=== PATIENT | female | born 1950 | race Caucasian/White ===

== ENCOUNTER 2022-03-06 09:00 | Outpatient (CLI) | payer MEDICARE, BC, SELFPAY | END 2022-03-06 09:01 | disposition home or self-care (01) | PROVIDERS: PCP Family Medicine; Visit Provider Family Medicine | DX: M54.16 Radiculopathy, lumbar region (principal); M51.36 Other intervertebral disc degeneration, lumbar region | CPT/HCPCS: 62323; J0702; Q9966 ==

== ENCOUNTER 2023-03-12 10:54 | Outpatient (RCR) | payer MEDICARE, BC, SELFPAY ==
--- NOTE | 2023-03-12 12:08 | PT.OPEX ---
[facility] initial eval requires signature [facility] Start: 03/02/23 08:06 Freq: Status: Active Protocol: Document 03/12/23 07:41 DEANNE (Rec: 03/12/23 12:06 DEANNE [id number]) E-signed By Zeus Oconnor DPT Physical Therapy Outpatient Evaluation Insurance Information Recert Due Date 06/05/23 Insurance Name Medicare B Medical Diagnosis L knee OA L TKA Treating Diagnosis L knee pain muscle weakness Subjective Subjective Skylar comes into clinic prior to her scheduled L TKA on 03/25. Has had her hip replaced in the past without any issues and was very happy with the results. The knee has been giving her pain for the past 3 years ago or so and has finally decided to get it replaced. About 3-4 weeks ago she had COVID-pneumonia and was hospitalized for several days-does state feeling much better since than. Her friend will be staying with her for 2 weeks following surgery to help take care of things. Her biggest goals are to become more active along with improved walking, donning/ doffing socks, stairs. Pain Comments 10 with squatting, walking putting on socks kneeling Date of Surgery (If applicable) 03/25/23 Current Work Status Retired Precautions Treatment Precautions/Contraindications hx of pneumonia-covid, osteoporosis, fibromyalgia, R JIL Objective Other/Pertinent Objective GAIT/FUNCTIONAL MOBILITY ambulates with trendelenburg pattern, increased L knee valgus with stance , decreased pace KNEE ROM L [id number] passively lacking 13 degrees LLE MMT: Hip flexion: L4 /5 Hip abduction: L3- /5 Knee flexion: L4 /5 Knee extension: L4- /5 Assessment Assessment/Impression Pt is a 72 yr old female who presents with concerns of L knee pain due to OA. Patient also has notable objective findings including limited ROM , impaired balance, decreased strength also likely contributing to the problem. Patient is a good candidate for skilled therapy to target deficits described above. Skilled PT intervention is necessary for use of therapeutic exercise manual therapy, neuromuscular re- education, gait training, and therapeutic activity. Functional impairments include difficulty with: walking standing stairs squatting. Pt will be following up post operatively elsewhere for her rehab. Goals were to educate pt on TKA POC and rehab protocol. Pt was agreeable and stated understanding with all questions being answered Plan of Care Rehabilitation Potential Excellent Physical Therapy Goals GOAL in 1 visit Pt will be independent with post op HEP within 1 visit to allow for independence and continued improvement past formal therapy Coordination/Communication With Referral Source Treatment Plan/Direct Interventions Therapeutic Exercises Frequency/Duration 1 visit Patient Will Be Discharged From Therapy Independent w/HEP Evaluation Billing Untimed Code Treatment Minutes 20 Complexity Low Certification Information Physician Comment/Change : Physician NPI Number #
== END 2023-07-10 23:59 | disposition home or self-care (01) ==
PROVIDERS: PCP Family Medicine; Visit Provider Orthopaedic Surgery
DX: M17.12 Unilateral primary osteoarthritis, left knee (principal); Z96.652 Presence of left artificial knee joint; M25.562 Pain in left knee; M62.81 Muscle weakness (generalized); Z51.89 Encounter for other specified aftercare
CPT/HCPCS: 97110; 97161

== ENCOUNTER 2023-05-13 10:07 | Day surgery (SDC) | payer MEDICARE, BC, SELFPAY ==
[2023-05-13] VITALS (36 sets, daily range): BP systolic 108–168; BP diastolic 63–116; PULSE 72–95; RESP 13–20; TEMP 36.5–37.1; O2SAT 88–97; BMI 44.8
[2023-05-13] MEDS: CELECOXIB 200 MG CAPSULE PO (11:00)
[2023-05-13] MEDS: SODIUM CHLORIDE 0.9 % (FLUSH) 10 ML SYRINGE IVF (11:00)
[2023-05-13] MEDS: ACETAMINOPHEN 500 MG TABLET 1000 MG PO ×2 (11:00→19:45)
[2023-05-13] MEDS: LACTATED RINGERS 1000 ML 1,000 ML 100 ML IV ×2 (11:00→15:00)
[2023-05-13] MEDS: OXYCODONE (CR) 10 MG TAB.ER.12H PO (11:00)
[2023-05-13] MEDS: MIDAZOLAM HCL 1 MG/ML inj IVP (12:28)
[2023-05-13] MEDS: fentaNYL 100 MCG/2 ML inj IVP (12:28)
--- NOTE | 2023-05-13 12:34 | SUR.PREOP ---
TIME?OUT:?1227 PT/RN/MDA?VERIFICATION?OF?SURGICAL?SITE Left Knee,?PROCEDURE Adductot Canal Block,?AND?CONSENT OBTAINED?PRIOR?TO?INVASIVE?PROCEDURE.
[2023-05-13] MEDS: CEFAZOLIN 2 GM INJ IVP (13:30)
[2023-05-13] MEDS: TRANEXAMIC ACID 100 MG/ML INJ 1000 MG IV (13:30)
--- NOTE | 2023-05-13 14:13 | SUR.OPER ---
PATIENT QUESTIONS ANSWERED SATISFACTORILY PREOPERATIVELY.? PATIENT BROUGHT TO OR #3 PER CART AFTER ADMINISTRATION OF A BLOCK.? Patient positioned supine on OR #3 bed.? The perioperative?team supported arms bilaterally on arm boards.? Final approval of positioning by surgeon. MULTIPLE (10-14?) SCABBED/OPEN SKIN LESIONS/ERUPTIONS (NALLELY STASIS?) ON THE LLE.
--- NOTE | 2023-05-13 15:17 | W.ANESCHARGE ---
Anesthesia Charges Start Date/Time Anesthesia Start Date: 05/13/23 Anesthesia Start Time: 12:48 Stop Date/Time Anesthesia Stop Date: 05/13/23 Anesthesia Stop Time: 16:22 Summary Extremes of Age - Over 70 or under 1: MDA
--- NOTE | 2023-05-13 15:18 | W.PM.NB ---
Nerve Block Nerve Block Time Seen by Provider: 12:30 Date Seen: 05/13/23 Type of block requested by surgeon for post-operative analgesia: adductor canal Side: left Time out performed: Yes Verification of patient name: Yes Verification of date of : Yes Site marking: site marked Name of person performing procedure: Mykel Continuous monitoring Was continuous monitoring of O2 sat, B/P, alarm security or surveillance monitor, recorded every 15 minutes?: Yes Procedure Checklist: sterile prep, needles and gloves Ultrasound guided. Images saved: Yes Medications given in 5ml increments after negative aspiration: Ropivicaine %: 0.5 mL: 20 Needle gauge: 20 Decadron (mg): 10 Precedex (mcg): 25 Patient tolerated procedure well: Yes Additional comments: Needle noted adjacent to nerve Block Charges Block Charge (with Pro Fee): Femoral Nerve Use of Ultrasound Machine for Block: Yes- US Guidance/pain block
--- NOTE | 2023-05-13 15:18 | W.PM.NB ---
Nerve Block Nerve Block Time Seen by Provider: 12:30 Date Seen: 05/13/23 Type of block requested by surgeon for post-operative analgesia: geniculars Side: left Time out performed: Yes Verification of patient name: Yes Verification of date of : Yes Site marking: site marked Name of person performing procedure: Mykel Continuous monitoring Was continuous monitoring of O2 sat, B/P, property assessment monitor, recorded every 15 minutes?: Yes Procedure Checklist: sterile prep, needles and gloves Medications given in 5ml increments after negative aspiration: Ropivicaine %: 0.5 mL: 9 Needle gauge: 25 Patient tolerated procedure well: Yes Block Charges Block Charge (with Pro Fee): Genicular Nerve Block Use of Ultrasound Machine for Block: No
--- NOTE | 2023-05-13 15:27 | XR_ITS ---
Patient: JOSH ANNE Facility:?[facility] Patient ID:?[id number] Site Patient ID:?[id number]. Site :?[id number] Study:?XRay-Extremity Left KNEE 2 VIEWS-05/13/2023 5:04:06 PM Ordering Physician:ERIN Final Report: INDICATION: Post operative total knee arthroplasty TECHNIQUE: Knee radiograph 2 views left COMPARISON: None FINDINGS: Bone: No acute fractures or aggressive bone lesions are identified. Joint: The patient is status post a total knee arthroplasty with patellar resurfacing. No significant knee effusion is seen. Soft tissue: Anterior subcutaneous gas and joint gas are present from recent surgery. No radiopaque foreign bodies are seen. IMPRESSION: 1. There is an unremarkable postoperative appearance of the knee arthroplasty. Dictated by: Grant Connolly MD @ 05/14/2023 07:38:38 Signed by:Nader Connolly MD @05/14/2023 7:38:38 AM (Electronic Signature)
--- NOTE | 2023-05-13 15:34 | PM.ORPRC ---
Procedure Note Date of procedure: 05/13/23 Procedure: PREOPERATIVE DIAGNOSIS: Left knee osteoarthritis POSTOPERATIVE DIAGNOSIS: Left knee osteoarthritis NAME OF OPERATION: Left total knee arthroplasty SURGEON: Brandon Merino MD SILVERWARE CLEANER: Rosario Lux PA-C ANESTHESIA: General ESTIMATED BLOOD LOSS: 0 mL COMPLICATIONS: None SPECIMENS: None DRAINS: None PREOPERATIVE ANTIBIOTICS: Ancef 2 grams, antibiotic impregnated cement IMPLANTS: 1. J&J Attune revision CRS # 8 posterior stabilized femur, with a 14 mm x 50 mm cemented stem 2. #6 revision CRS fixed-bearing tibia, with a 14 mm x 50 mm cemented stem 3. #6 posterior stabilized, 6 mm constrained fixed-bearing polyethylene 4. 38 patella INDICATIONS: The patient is a 72-year-old with a longstanding history of severe, unrelenting left knee pain secondary to end-stage (grade IV) left knee osteoarthritis. Despite appropriate nonoperative management, including activity modification, anti-inflammatories, mqja-ept-goymwfq pain medication, bracing, physical therapy, and injections they continue to have pain and disability. Operative intervention was offered. The risks, benefits and expected outcomes were discussed in detail. These included but were not limited to: Infection, bleeding, injury to blood vessel or nerve, venous thromboembolism. All questions were answered to their satisfaction. Use of an speech therapy assistant was necessary throughout the case for patient positioning and safety, soft tissue retraction, and closure. A modifier 22 should be added to this case. The patient's weight of 118 kg with a BMI of 45 increases the patient's risk of aseptic loosening. Therefore, stemmed components were used in an attempt to decrease this complication. This added more time and expense to complete the case. PROCEDURE: General anesthesia was administered. The patient was placed supine on the operating table. The speech therapy assistant made sure the patient was positioned appropriately. The lower extremity was prepped and draped in the usual sterile fashion. The limb was exsanguinated with the Rufus bandage. The pneumatic tourniquet was inflated to 300 mmHg. A standard anterior incision was made with the knee in flexion. Subcutaneous dissection was sharply taken through fascial layer #1. Full-thickness medial and lateral flaps were elevated. The speech therapy assistant retracted the soft tissues and protected them throughout the case. A standard subvastus approach was made. The patella was subluxed. The infrapatellar fat pad was resected. The menisci and cruciate ligaments were sharply d?brided. Marginal osteophytes were d?brided with the rongeur. The drill was used to penetrate the femoral canal. The canal was aspirated and irrigated with pulse lavage. The intramedullary femoral guide was placed for a 5-degree valgus cut, removing 12 mm off the distal femur. The saw was used to make the cut. Whitesides line and the trans epicondylar axis were marked. The femoral sizing guide was pinned onto the distal femur. Three degrees of external rotation nicely parallels the transepicondylar axis. Pins were placed for posterior referencing. The four-in-one cutting guide was pinned onto the distal femur. The anterior, posterior, and chamfer cuts were made. The speech therapy assistant protected the collateral ligaments. The revision trial was placed. The box cuts were made. The drill was used x2. The stemmed, boxed trial was placed and was an excellent fit. Attention was then turned to the proximal tibia. The extramedullary tibial guide was placed for a neutral varus/valgus cut with 7 degrees of posterior slope, removing 2 mm based off the medial tibial surface. The speech therapy assistant protected the collateral ligaments and the neurovascular bundle. The saw was used to make the cut. Trial components were placed. The knee was nicely balanced in both flexion and extension. The trial components were removed. The tray was placed in appropriate rotation, parallel to our tibial cutting pins. It was pinned by the speech therapy assistant and the drill x2 was used. The stemmed tibial trial was placed. The punch was used. The tray was removed. The punch was used again. Attention was then turned to the patella. [place] patellar thickness was 23 mm. The lobster claw resection guide was used with the 9.5 mm viky. The saw was used to make the cut. Drill holes were made by the speech therapy assistant. The trial was placed and was an excellent fit. Cancellous surfaces were irrigated with pulse lavage and thoroughly dried by the speech therapy assistant. We cemented the tibial component, then the femoral component. We impacted the 6 mm polyethylene onto the tibial tray. The knee was brought into full extension. We then cemented the patellar component. Excessive cement was removed. The cement was allowed to harden. The knee was taken through a range of motion and was found to be nicely balanced in both flexion and extension. The patella tracks centrally. The speech therapy assistant did a three minute dilute Betadine solution soak. The speech therapy assistant irrigated the wound with 3 liters of normal saline via pulse lavage. The speech therapy assistant reapproximated the extensor mechanism with #1 Vicryl in an interrupted [id number]-yn-[id number] fashion. The speech therapy assistant then ran the extensor mechanism with a #1 PDO Stratafix. The speech therapy assistant closed the subcutaneous tissues with a 3-0 Stratafix and the skin with a running 3-0 Stratafix in a subcuticular fashion. Glue was used to seal the skin. The speech therapy assistant placed a dry dressing, ENRICO stocking, and Polar Care. Sponge and needle counts were correct x2. The patient tolerated the procedure well. There were no apparent complications. They were carefully transferred to the hospital bed and taken to the postanesthesia care unit in satisfactory condition. PLAN: The patient will be mobilized with physical therapy. The patient is on Xarelto. This will be restarted tomorrow morning. They will be discharged to home once medically appropriate.
[2023-05-13] MEDS: fentaNYL 100 MCG/2 ML inj 50 MCG IVP ×2 (16:42→16:56)
--- NOTE | 2023-05-13 16:57 | W.ANESCHARGE ---
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
[2023-05-13] MEDS: ACETAMINOPHEN INJ 1,000 MG/100 ML VIAL 400 MG IVPB (17:30)
--- NOTE | 2023-05-13 18:41 | SUR.PHASEI ---
patient ok to go to [facility] phase 2 per anesthesia photo checker and assembler-RR. Vital signs stable per patient baseline. Remains on oxymask 6L; per respiratory therapy ok to bring to [facility]sur. Patient continues to have pain; gave medications per photo checker and assembler. TANKER SERVICEMAN referred transfer to [facility] unit for continued pain management.
[2023-05-13] MEDS: LACTATED RINGERS 1000 ML 1,000 ML 75 ML IV (19:44)
--- NOTE | 2023-05-13 20:54 | P.IMCN_ITS ---
Date of Consult Patient: David Patient Consult date: 05/13/23 Primary Care Provider: Lisa Eastman CNP Consult Narrative Reason for consult: Medical management of comorbidities Narrative: Skylar Flynn is a 72 year old female who presented to the hospital today for an elective L TKA. She arrived to the floor postoperatively with pain and mild hypoxia, requiring supplemental oxygen. No CP or feelings of dyspnea. Patient's H&P reviewed, PCP is at [facility]. Past medical history significant for: B PEs (anticoagulated on Xarelto, last dose on 05/08), SOPHIA, fibromyalgia. Review of Systems Status of ROS: Reports: 10 or more systems reviewed and unremarkable except as noted in History and below [facility] Medical History (Updated 05/12/23 @ 10:22 by Lalitha Garcia RN) Depression with anxiety ?F41.8 - Other specified anxiety disorders (ICD-10) Fibromyalgia ?M79.7 - Fibromyalgia (ICD-10) Cellulitis ?L03.90 - Cellulitis, unspecified (ICD-10) Bilateral knee pain ?M25.561 - Pain in right knee (ICD-10) ?M25.562 - Pain in left knee (ICD-10) Pulmonary embolism ?I26.99 - Other pulmonary embolism without acute cor pulmonale (ICD-10) DVT (deep venous thrombosis) ?I82.409 - Acute embolism and thrombosis of unspecified deep veins of unspecified lower extremity (ICD-10) Squamous cell carcinoma Osteoarthritis ?M19.90 - Unspecified osteoarthritis, unspecified site (ICD-10) Sleep apnea ?G47.30 - Sleep apnea, unspecified (ICD-10) COPD (chronic obstructive pulmonary disease) ?J44.9 - Chronic obstructive pulmonary disease, unspecified (ICD-10) Surgical History (Updated 05/13/23 @ 20:55 by Kelly Shirley MD) Status post left knee replacement ?Z96.652 - Presence of left artificial knee joint (ICD-10) History of Mohs surgery for squamous cell carcinoma of skin ?Z98.890 - Other specified postprocedural states (ICD-10) ?Z85.828 - Personal history of other malignant neoplasm of skin (ICD-10) History of right hip replacement (~2020) ?Z96.641 - Presence of right artificial hip joint (ICD-10) H/O arthroscopy of shoulder (2003) ?Z98.890 - Other specified postprocedural states (ICD-10) History of section ?Z98.891 - History of uterine scar from previous surgery (ICD-10) History of cataract surgery ?Z98.49 - Cataract extraction status, unspecified eye (ICD-10) Social History What is your current living situation?: I presently have a place to live Problems where you live: no known problems In the past 12 months, utilities in danger of being shut off: no In past 12 months, lack of transportation kept you from medical appts, meetings, work, or getting things needed for daily living: no In the past 12 mos, have been you worried that your food would run out before you had money to buy more?: never true In the past 12 mos, the food you bought just didn't last and you didn't have money to buy more?: never true Highest level of school completed/degree received: Bachelor's degree Smoking Status: Former smoker What tobacco products do you use: cigarettes Smoking packs per day: 1 Smoking cigarettes per day: 20.0 Years smoked: 25 Smoking pack-years: 25.00 Smoking quit date/years: >15 years ago Do you use any of these nicotine containing products: None Second hand tobacco smoke exposure: No (7 years) How often do you have a drink containing alcohol: 2-4 times a month Alcohol type: beer How many standard drinks containing alcohol do you have on a typical day: 1 or 2 How often do you have six or more drinks on one occasion: Never AUDIT-C Alcohol total score: 2 Non-prescribed substance use: denies use Caffeine: Yes How often does anyone, including family, friends and others, physically hurt you : never How often does anyone, including family, friends and others, insult or talk down to you: never How often does anyone, including family, friends and others, threaten you with harm: never How often does anyone, including family, friends and others, scream or curse at you: never service: No Meds Home Medications and Allergies Home Medications Medication Instructions Recorded Confirmed Type albuterol sulfate 90 mcg/actuation 1 - 2 puff inhalation Q6H PRN 02/03/23 05/13/23 History aerosol inhaler duloxetine 30 mg capsule,delayed 30 mg PO DAILY 02/03/23 05/13/23 History release gabapentin 300 mg capsule 600 mg PO TID 02/03/23 05/13/23 History hydroxyzine pamoate 25 mg capsule 25 mg PO QPM PRN anxiety 02/03/23 05/13/23 History rivaroxaban 20 mg tablet (Xarelto) 20 mg PO DAILY 02/03/23 05/13/23 History rosuvastatin 20 mg tablet 20 mg PO HS 02/03/23 05/13/23 History torsemide 20 mg tablet 20 mg PO Q48H 05/11/23 05/13/23 History Allergies Allergy/AdvReac Type Severity Reaction Status Date / Time No Known Drug Allergies Allergy Verified 05/13/23 10:25 Exam Narrative: Exam Narrative: GEN: Sleepy but arousable, nontoxic HEENT: EOMIs bilaterally, no scleral icterus CV: RRR, soft systolic murmur without concerning features R: No concerning wheezing, decreased bibasilar air movement Ext: wearing soy hose bilaterally, L knee is wrapped Skin: No concerning skin lesions or rashes on exposed skin Neuro: No focal deficits Psych: Appropriate Const: Vital Signs, click to edit/add: Vital Signs - 24 hr 05/13/23 10:33 05/13/23 12:27 05/13/23 12:30 Temperature 97.8 F Pulse Rate 88 78 81 Pulse Rate [Right Pulse Oximeter] Respiratory Rate 16 16 16 Blood Pressure 136/85 127/69 130/70 Blood Pressure [Le ft Arm] Pulse Oximetry 95 96 92 Oxygen Delivery Me thod Room Air Nasal Cannula Nasal Cannula Oxygen Flow Rate 2 2 05/13/23 12:35 05/13/23 12:40 05/13/23 16:19 Temperature 97.7 F Pulse Rate 80 85 76 Pulse Rate [Right Pulse Oximeter] Respiratory Rate 16 16 16 Blood Pressure 122/74 115/69 157/86 H Blood Pressure [Le ft Arm] Pulse Oximetry 95 94 93 Oxygen Delivery Me thod Nasal Cannula Nasal Cannula Non Rebreather Mas k Oxygen Flow Rate 2 2 8 05/13/23 16:25 05/13/23 16:30 05/13/23 16:35 Temperature Pulse Rate 75 75 73 Pulse Rate [Right Pulse Oximeter] Respiratory Rate 18 16 14 Blood Pressure 148/86 H 130/116 H 126/100 H Blood Pressure [Le ft Arm] Pulse Oximetry 91 95 97 Oxygen Delivery Me thod Oxygen Flow Rate 05/13/23 16:40 05/13/23 16:45 05/13/23 16:50 Temperature Pulse Rate 75 76 72 Pulse Rate [Right Pulse Oximeter] Respiratory Rate 16 16 16 Blood Pressure 168/95 H 135/100 H 150/74 H Blood Pressure [Le ft Arm] Pulse Oximetry 96 93 95 Oxygen Delivery Me thod Oxygen Flow Rate 05/13/23 16:55 05/13/23 17:00 05/13/23 17:05 Temperature Pulse Rate 75 77 74 Pulse Rate [Right Pulse Oximeter] Respiratory Rate 15 14 16 Blood Pressure 151/88 H 149/82 H 138/115 H Blood Pressure [Le ft Arm] Pulse Oximetry 94 94 93 Oxygen Delivery Me thod Oxygen Flow Rate 05/13/23 17:10 05/13/23 17:15 05/13/23 17:20 Temperature Pulse Rate 73 74 76 Pulse Rate [Right Pulse Oximeter] Respiratory Rate 15 16 16 Blood Pressure 149/82 H 147/81 H 157/74 H Blood Pressure [Le ft Arm] Pulse Oximetry 94 96 92 Oxygen Delivery Me thod OxyMask Oxygen Flow Rate 6 05/13/23 17:25 05/13/23 17:30 05/13/23 17:35 Temperature Pulse Rate 75 84 80 Pulse Rate [Right Pulse Oximeter] Respiratory Rate 14 16 16 Blood Pressure 148/86 H 152/116 H 157/89 H Blood Pressure [Le ft Arm] Pulse Oximetry 91 92 90 Oxygen Delivery Me thod Oxygen Flow Rate 05/13/23 17:40 05/13/23 17:45 05/13/23 17:50 Temperature Pulse Rate 80 81 80 Pulse Rate [Right Pulse Oximeter] Respiratory Rate 14 16 16 Blood Pressure 150/75 H 167/84 H 147/104 H Blood Pressure [Le ft Arm] Pulse Oximetry 93 89 91 Oxygen Delivery Me thod Oxygen Flow Rate 05/13/23 17:55 05/13/23 18:00 05/13/23 18:10 Temperature 98.7 F 98.3 F Pulse Rate 78 81 80 Pulse Rate [Right Pulse Oximeter] Respiratory Rate 13 16 16 Blood Pressure 152/78 H 149/81 H Blood Pressure [Le ft Arm] 158/70 H Pulse Oximetry 92 90 92 Oxygen Delivery Me thod OxyMask Oxygen Flow Rate 5 05/13/23 18:15 05/13/23 18:30 05/13/23 18:45 Temperature Pulse Rate Pulse Rate [Right Pulse Oximeter] 84 81 82 Respiratory Rate 14 16 16 Blood Pressure Blood Pressure [Le ft Arm] 142/71 H 125/63 132/69 Pulse Oximetry 90 91 91 Oxygen Delivery Me thod OxyMask OxyMask OxyMask Oxygen Flow Rate 5 5 5 05/13/23 19:00 Temperature Pulse Rate Pulse Rate [Right Pulse Oximeter] 80 Respiratory Rate 16 Blood Pressure Blood Pressure [Le ft Arm] 144/72 H Pulse Oximetry 92 Oxygen Delivery Me thod OxyMask Oxygen Flow Rate 5 Assessment and Plan Assessment and plan (1) Status post left knee replacement: Problem comment: - 05/13/23Wilber Status: Acute Plan - pain management and prophylaxis per orthopedic surgery team (will restart home Xarelto dosing on POD 1) - continue home medications for comorbidities - taper off of supplemental oxygen as tolerated - continue to monitor pain closely
[2023-05-13] MEDS: CEFAZOLIN 2 GM in 0.9 % SODIUM CHLORIDE Mini-bag 100 ML IVPB (21:26)
[2023-05-13] MEDS: HYDROmorphone 0.5 mg/0.5 ml inj IVP (21:28)
[2023-05-13] MEDS: SENNOSIDES 1 TAB TABLET 2 TAB PO (21:28)
[2023-05-14] VITALS: BP 126/61; PULSE 90; RESP 18; TEMP 36.9; O2SAT 93
[2023-05-14] MEDS: ACETAMINOPHEN 500 MG TABLET 1000 MG PO (00:38)
[2023-05-14] MEDS: OXYCODONE 5 MG TABLET PO ×4 (00:39→10:40)
[2023-05-14 03:00] VITALS: BP 139/71; PULSE 90; RESP 18; TEMP 36.9; O2SAT 91
[2023-05-14] MEDS: CEFAZOLIN 2 GM in 0.9 % SODIUM CHLORIDE Mini-bag 100 ML IVPB (05:38)
--- NOTE | 2023-05-14 06:36 | PC.NURSE ---
End of shift [id number]: Pt A&O, afebrile and VSS with exception to O2 requirements overnight. She is Ax1 with gait belt & 2ww to BSC. Pt was very drowsy for the majority of the night but every time she woke up, she would rate her pain 10/10. PRN Dilaudid given x1 dose @ 2130 and PRN oxy given x2 doses last @ 0540. Pt remained on 6L Oxy-mask overnight to maintain O2 88-93% (h/o SOPHIA and COPD). PIV in left wrist and in right hand both SL and C/D/I. Pt was bladder scanned @ 0030 for 598 mL. She did not have the urge to void but with encouragement, she used the BSC and voided 600 mL. PVR scan was 58 mL. Pt also had a large BM overnight. IV Ancef given q8H per MAY. Left knee dressing C/D/I and Cryo-cuff in place. JEANIE wraps removed & applied ENRICO stockings this morning for pt comfort. Bilat Plexi-pulses in place overnight. Unable to give scheduled 0645 Tylenol d/t daily limit being reached. ?
[2023-05-14 06:47] LABS: Basophils Percent Auto 0.1 % (0.0-3.0); Hematocrit 45.4 % (33.0-51.0); Hemoglobin* 14.2 gm/dL (12.0-16.0); Immature Granulocytes Pct Auto 0.2 %; Lymphocytes Percent Auto 9.4 % (20-44); Mean Corpuscular HGB Conc 31 gm/dL (32-36); Mean Corpuscular Hemoglobin 30 pg (26-34); Mean Corpuscular Volume 97 fL (80-100); Monocytes Percent Auto 6.5 % (0.0-11.0); Neutrophils Percent Auto 83.8 % (42.0-72.0); Platelet Count* 207 K/uL (140-440); RDW Coefficient of Variation % 15.4 % (11.5-15.5); Red Blood Count 4.69 m/uL (4.00-5.20); White Blood Count* 13.76 K/uL (4.50-11.00)
[2023-05-14 06:53] LABS: Slide Review Reflex No
[2023-05-14 07:08] LABS: INR 0.89 (0.91-1.10); Prothrombin Time 12.6 Seconds
[2023-05-14 07:12] LABS: Potassium* 4.3 mmol/L (3.6-5.1); Sodium* 137 mmol/L (135-149)
[2023-05-14 07:15] LABS: Blood Urea Nitrogen* 15 mg/dL (7-30); Creatinine* 0.6 mg/dL (0.5-1.5); Est. Creatinine Clearance* 44.56; Estimated Glomerular Filt Rate 96 ml/min
[2023-05-14 08:20] VITALS: BP 108/59; PULSE 95; RESP 20; TEMP 36.6; O2SAT 91
--- NOTE | 2023-05-14 08:26 | PM.ORPN ---
Subjective Subjective Time Seen by Provider: 07:45 Date Seen: 05/14/23 Principal diagnosis: Status post left knee replacement Interval history: Skylar is having pain in her knee. She denies nausea vomiting. Her breathing feels best when she is in a upright position. Ortho Exam Narrative Exam Narrative: Alert and oriented x3. Patient is in no acute distress. Converses without labored breathing. Hearing is grossly intact. Ambulates with a walker. Examination of the left lower extremity shows mild effusion. Mild soft tissue edema about the knee. Dressing is clean, dry, and intact. CMS intact left lower extremity. She is unable to straight leg raise. Weak quads. Non operative right leg is also weak. Generalized weakness bilateral calves are soft and nontender. Const Vital Signs, click to edit/add: Vital Signs - 24 hr 05/13/23 10:33 05/13/23 12:27 05/13/23 12:30 Temperature 97.8 F Pulse Rate 88 78 81 Pulse Rate [Right Pulse Oximeter] Respiratory Rate 16 16 16 Blood Pressure 136/85 127/69 130/70 Blood Pressure [Left Arm] Pulse Oximetry 95 96 92 Oxygen Delivery Method Room Air Nasal Cannula Nasal Cannula Oxygen Flow Rate 2 2 05/13/23 12:35 05/13/23 12:40 05/13/23 16:19 Temperature 97.7 F Pulse Rate 80 85 76 Pulse Rate [Right Pulse Oximeter] Respiratory Rate 16 16 16 Blood Pressure 122/74 115/69 157/86 H Blood Pressure [Left Arm] Pulse Oximetry 95 94 93 Oxygen Delivery Method Nasal Cannula Nasal Cannula Non Rebreather Mask Oxygen Flow Rate 2 2 8 05/13/23 16:25 05/13/23 16:30 05/13/23 16:35 Temperature Pulse Rate 75 75 73 Pulse Rate [Right Pulse Oximeter] Respiratory Rate 18 16 14 Blood Pressure 148/86 H 130/116 H 126/100 H Blood Pressure [Left Arm] Pulse Oximetry 91 95 97 Oxygen Delivery Method Oxygen Flow Rate 05/13/23 16:40 05/13/23 16:45 05/13/23 16:50 Temperature Pulse Rate 75 76 72 Pulse Rate [Right Pulse Oximeter] Respiratory Rate 16 16 16 Blood Pressure 168/95 H 135/100 H 150/74 H Blood Pressure [Left Arm] Pulse Oximetry 96 93 95 Oxygen Delivery Method Oxygen Flow Rate 05/13/23 16:55 05/13/23 17:00 05/13/23 17:05 Temperature Pulse Rate 75 77 74 Pulse Rate [Right Pulse Oximeter] Respiratory Rate 15 14 16 Blood Pressure 151/88 H 149/82 H 138/115 H Blood Pressure [Left Arm] Pulse Oximetry 94 94 93 Oxygen Delivery Method Oxygen Flow Rate 05/13/23 17:10 05/13/23 17:15 05/13/23 17:20 Temperature Pulse Rate 73 74 76 Pulse Rate [Right Pulse Oximeter] Respiratory Rate 15 16 16 Blood Pressure 149/82 H 147/81 H 157/74 H Blood Pressure [Left Arm] Pulse Oximetry 94 96 92 Oxygen Delivery Method OxyMask Oxygen Flow Rate 6 05/13/23 17:25 05/13/23 17:30 05/13/23 17:35 Temperature Pulse Rate 75 84 80 Pulse Rate [Right Pulse Oximeter] Respiratory Rate 14 16 16 Blood Pressure 148/86 H 152/116 H 157/89 H Blood Pressure [Left Arm] Pulse Oximetry 91 92 90 Oxygen Delivery Method Oxygen Flow Rate 05/13/23 17:40 05/13/23 17:45 05/13/23 17:50 Temperature Pulse Rate 80 81 80 Pulse Rate [Right Pulse Oximeter] Respiratory Rate 14 16 16 Blood Pressure 150/75 H 167/84 H 147/104 H Blood Pressure [Left Arm] Pulse Oximetry 93 89 91 Oxygen Delivery Method Oxygen Flow Rate 05/13/23 17:55 05/13/23 18:00 05/13/23 18:10 Temperature 98.7 F 98.3 F Pulse Rate 78 81 80 Pulse Rate [Right Pulse Oximeter] Respiratory Rate 13 16 16 Blood Pressure 152/78 H 149/81 H Blood Pressure [Left Arm] 158/70 H Pulse Oximetry 92 90 92 Oxygen Delivery Method OxyMask Oxygen Flow Rate 5 05/13/23 18:15 05/13/23 18:30 05/13/23 18:45 Temperature Pulse Rate Pulse Rate [Right Pulse Oximeter] 84 81 82 Respiratory Rate 14 16 16 Blood Pressure Blood Pressure [Left Arm] 142/71 H 125/63 132/69 Pulse Oximetry 90 91 91 Oxygen Delivery Method OxyMask OxyMask OxyMask Oxygen Flow Rate 5 5 5 05/13/23 19:00 05/13/23 19:30 05/13/23 20:00 Temperature 98.4 F Pulse Rate Pulse Rate [Right Pulse Oximeter] 80 86 87 Respiratory Rate 16 20 18 Blood Pressure Blood Pressure [Left Arm] 144/72 H 129/65 108/65 Pulse Oximetry 92 91 88 Oxygen Delivery Method OxyMask OxyMask OxyMask Oxygen Flow Rate 5 5 5 05/13/23 21:00 05/13/23 22:00 05/13/23 23:00 Temperature 98.4 F 98.4 F Pulse Rate Pulse Rate [Right Pulse Oximeter] 95 90 92 Respiratory Rate 18 18 18 Blood Pressure Blood Pressure [Left Arm] 120/64 131/73 Pulse Oximetry 89 91 Oxygen Delivery Method OxyMask OxyMask Oxygen Flow Rate 6 6 05/13/23 23:00 05/14/23 00:00 05/14/23 03:00 Temperature 98.4 F 98.4 F 98.4 F Pulse Rate Pulse Rate [Right Pulse Oximeter] 92 90 90 Respiratory Rate 18 18 18 Blood Pressure Blood Pressure [Left Arm] 120/67 126/61 139/71 Pulse Oximetry 91 93 91 Oxygen Delivery Method OxyMask OxyMask OxyMask Oxygen Flow Rate 6 6 6 05/14/23 08:20 Temperature 97.9 F Pulse Rate Pulse Rate [Right Pulse Oximeter] 95 Respiratory Rate 20 Blood Pressure Blood Pressure [Left Arm] 108/59 L Pulse Oximetry 91 Oxygen Delivery Method Room Air Oxygen Flow Rate Assessment and Plan Assessment and plan (1) Status post left knee replacement: Problem details: - 05/13/23Wilber Status: Acute Assessment and Plan: Plan for discharge is today to home if they meet discharge criteria. DVT prophylaxis includes Xarelto, her usual daily dose of 20 mg a day, Beto stockings x1 month may remove for 1 hr per day, frequent ambulation Remove dressing in 1 week. Observe wound and phone Orthopedics with any questions or concerns Return to clinic in 1 week for a wound check Return to clinic in 6 weeks with surgeon Minimize narcotic use. Wean off and discontinue soon as possible. Activities as tolerated. No strenuous activity. Outpatient physical therapy as scheduled. Ice and elevate the operative extremity. No restriction on ice. We discussed that she certainly has pain today. Block may be minimally working for her. We discussed that pain will get worse over the next 2-3 to 4 days before it is more tolerable, expect 10 days to 2 weeks of quite significant discomfort before things turn a corner with pain, expecting pain to continue 4 months however with physical therapy. She has a good support system at home. Swelling and bruising will also increase over the next week.
[2023-05-14] MEDS: RIVAROXABAN 10 MG TABLET 20 MG PO (08:31)
[2023-05-14] MEDS: SENNOSIDES 1 TAB TABLET 2 TAB PO (08:31)
== END 2023-05-14 12:30 | disposition home or self-care (01) ==
LOC: OR 10:10 → MEDSURG 10:17
PROVIDERS: PCP Nurse Practitioner Family; Visit Provider Orthopaedic Surgery
PROC: (CPT 27447; principal; 2023-05-13 12:00)
DX: M17.12 Unilateral primary osteoarthritis, left knee (principal); G89.18 Other acute postprocedural pain; R09.02 Hypoxemia; G47.33 Obstructive sleep apnea (adult) (pediatric); M79.7 Fibromyalgia; F41.8 Other specified anxiety disorders; E66.01 Morbid (severe) obesity due to excess calories; Z68.42 Body mass index [BMI] 45.0-49.9, adult; J44.9 Chronic obstructive pulmonary disease, unspecified; Z86.711 Personal history of pulmonary embolism; Z79.01 Long term (current) use of anticoagulants
CPT/HCPCS: 27447; 01402; 36415; 51798; 64447; 64454; 73560; 76942; 82565; 84132; 84295; 84520; 85025; 85610; 94761; 97110; 97116; 97161; 97165; 97530; 97535; 99100; A9270; C1776; J0131; J0171; J0330; J0690; J1100; J1170; J2250; J2405; J2704; J2795; J3010; J3490; J7120

== ENCOUNTER 2023-05-21 13:46 | Outpatient (CLI) | payer MEDICARE, BC, SELFPAY ==
--- NOTE | 2023-05-21 14:00 | US_ITS ---
Patient: JOSH ANNE Facility:?[facility] Patient ID:?[id number] Site Patient ID:?[id number]. Site :?[id number] Study:?US-Extremity left venous-05/21/2023 3:13:15 PM Ordering Physician:Noah Menjivar Final Report: INDICATION: Status post left knee arthroplasty with increasing swelling. COMPARISON: None available. TECHNIQUE: Static and compression grayscale and spectral (including color) Doppler ultrasound of the left lower extremity. FINDINGS: Deep veins: The left common femoral, deep femoral, superficial femoral, popliteal, posterior tibial, and peroneal veins are patent and free of clot. Superficial veins: The imaged left great saphenous vein is patent and free of clot. Extravascular findings: No significant incidental findings. IMPRESSION: No evidence of DVT in the left lower extremity. Dictated by Zeus Ortiz MD @ 05/21/2023 3:55:32 PM Signed by:?Zeus Ortiz MD @05/21/2023 3:55:32 PM (Electronic Signature)
== END 2023-05-21 13:47 | disposition home or self-care (01) ==
LOC: US 13:47
PROVIDERS: PCP Nurse Practitioner Family; Visit Provider Orthopaedic Surgery Sports Medicine
DX: M79.662 Pain in left lower leg (principal); M25.472 Effusion, left ankle; Z96.652 Presence of left artificial knee joint
CPT/HCPCS: 93971

== ENCOUNTER 2023-08-19 07:23 | Day surgery (SDC) | payer MEDICARE, BC, SELFPAY ==
[2023-08-19] VITALS (18 sets, daily range): BP systolic 112–146; BP diastolic 67–85; PULSE 66–100; RESP 16–20; TEMP 36.1–36.6; O2SAT 84–96; BMI 47.9
--- OUTSIDE RECORDS SUMMARY | 2023-08-19 07:28 | XMS_ITS | Clinical Summary ---
Author Organization [employer] [facility] Address [place], [place] [address] Care Team Providers Care Product Blending Supervisor Name Role Phone Lisa Eastman NP Primary Care Provider [phone] [facility] [place] Unavailable [phone] Selin Fernández RN Unavailable [phone] Allergies No known active allergies Medications Medication Sig Dispensed Refills Start Date End Date Status CPAPIndications:Sle ep apnea, unspecified type,Pulmonary emphysema, unspecified emphysema type (HC),Obstructive sleep apnea Needing CPAP supplies mask, headgear, filters and tubing. Pressure: 4-15cm/H2O Length of Need: 99 months. 1 Device 11 0 Active Walker - 4 wheelsIndications:P rimary osteoarthritis of right hip,Pre-op evaluation For home use. Length of need: 3 months 1 Device 1 Active thiamine HCl (VITAMIN B-1 ORAL) Take 1 Tablet by mouth once daily. Active Graduated Compression StockingsIndication s:Status post total replacement of right hip,Edema of right lower leg For personal use. Length: calf Strength: 20-30 mmHg Circumference in cm: For calf: Ankle 30.5 cm, Calf 52.5 cm, Ankle to calf length 36 cm. 1 Packet 1 Active clobetasol 0.05% (TEMOVATE 0.05% OINTMENT) 0.05 % ointment APPLY TO AFFECTED AREA ON BODY 1-2X DAILY FOR 2 WEEKS , TAKE 2 WEEKS OFF THEN REPEAT NEEDED FOR FLARES 2 Active mupirocin (BACTROBAN OINTMENT) ointment APPLY TO OPEN SORES ON BODY 1-BID UNTIL WELL HEALED 2 Active valACYclovir (VALTREX) 1 gram tablet TAKE TWO TABLETS BY MOUTH AT ONSET OF SYMPTOMS, THEN REPEAT DOSE IN 12 HOURS. REPEAT NEEDED FOR FLARES 3 Active albuterol HFA (PRO-AIR; VENTOLIN; PROVENTIL) 90 mcg/actuation inhalerIndications: Cough, unspecified type,Wheeze INHALE 1 TO 2 PUFFS BY MOUTH FOUR TIMES DAILY NEEDED FOR SHORTNESS OF BREATH OR WHEEZING 20.1 g 3 Active hydrOXYzine pamoate (VISTARIL) 25 mg capsuleIndications: Anxiety,Grieving Take 1 capsule daily at supper as needed for sleep/anxiety 30 Capsule 5 3 Active Xarelto 20 mg tabletIndications:P ulmonary emphysema, unspecified emphysema type (HC) TAKE 1 TABLET(20 MG) BY MOUTH EVERY DAY WITH THE EVENING MEAL 90 Tablet 3 3 Active acetaminophen (TYLENOL EXTRA STRGTH) 500 mg tablet Take 1,000 mg by mouth two times daily. Max acetaminophen dose: 4000mg in 24 hrs. Active DULoxetine (CYMBALTA) 30 mg Delayed-release capsuleIndications: Depression with anxiety TAKE 1 CAPSULE(30 MG) BY MOUTH EVERY DAY 90 Capsule 1 4 Active gabapentin (NEURONTIN) 300 mg capsuleIndications: Neuropathic pain TAKE 2 CAPSULES BY MOUTH THREE TIMES DAILY 540 Capsule 1 4 Active rosuvastatin (CRESTOR) 20 mg tabletIndications:H yperlipidemia, unspecified hyperlipidemia type TAKE 1 TABLET(20 MG) BY MOUTH AT BEDTIME 90 Tablet 3 4 Active cholecalciferol (VITAMIN D3) 1,000 unit capsule Take 1,000 units by mouth once daily. Active torsemide (DEMADEX) 20 mg tabletIndications:P edal edema Take 1 tab in am every other day. 4 08/10/19 24 Discontinu ed(*Patien t states no longer taking) Active Problems Problem Noted Date Diagnosed Date Asymmetrical sensorineural hearing loss 08/05/19 Tinnitus, bilateral 08/05/2023 Depression, recurrent 03/03/2023 COVID 02/26/2023 Decompensated COPD with exac erbation (chronic obstructive pulmonary disease) 02/26/2023 History of pulmonary embolism 02/26/2023 Acute respiratory failure with hypoxia 3 Diverticulosis 02/24/2023 Spondylolisthesis, lumbar re gion - Grade 1 Anterolisthesis L4-5 & L5-S1 01/15/2022 Obesity, morbid 10/14/2021 Edema of right lower leg 10/22/2020 Status post total replacement of right hip 10/01 Pes anserine bursitis 12/26/2019 Osteoarthritis of both knees 02/11/2017 Acute pain of right knee 02/11/2017 Arthritis of both hips 01/19/2017 Pain of knee and lower leg, left 01/01/2017 Pain, joint, knee, right 01/01/2017 High serum fibrinogen 05/18/2016 Cellulitis 05/18/2016 DVT (deep venous thrombosis) 06/28/2014 SOPHIA 02/11/2014 AHI-34 02/27/2014 History of stress test 02/02/2014 Overview: Nuclear, normal COPD (chronic obstructive pulmonary disease) 08/2013 Sleep apnea 01/15/2014 Tobacco use 01/12/2014 Pulmonary embolism, bilateral 01/11/2014 Elevated troponin 01/11/2014 Cough 01/11/2014 Wheezing 01/11/2014 Fibromyalgia 04/25/2013 Pain medication agreement 04/25/2013 Overview: Fibromyalgia, skin cancer Lung nodule 04/25/2013 Personal history of colonic polyps 11/07/2012 Depression with anxiety 02/23/2012 Squamous cell skin cancer, multiple sites 2011 Left shoulder advanced glenohumeral joint osteoa rthritis 01/22/2011 Right shoulder advanced glenohumeral osteoarthri tis 01/22/2011 Pulmonary embolism Overview: Fall 2014and 03/2016 Polyp of colon Resolved Problems Problem Noted Date Diagnosed Date Resolved Date Pulmonary embolism 05/18/2016 7 Personal history of colonic polyps 11/07/2012 11/07/2012 Pneumonia, organism unspecified(486) 02/23/2012 01/11/2014 Left shoulder pain 01/22/2011 7 Right shoulder pain 01/22/2011 12/29/19 17 Encounters Date Type Department Care Team Description 08/10/2023 11:10 AM CDT Preop Visit [address] [phone] Lisa Eastman NP Preoperative Exam ((R) knee replacement on / with Dr. Merino at [facility]) 08/10/2023 Orders Only [address] [place] [address] Lisa Eastman NP 1 scan: (1-Ord) ABNORMAL ECG, 08/10/2023 08/10/2023 Travel 08/05/2023 11:00 AM CDT Office Visit [address] [place] [phone] Tressa Gibson AuD Hearing Problem (Hearing test) 08/05/2023 Travel 07/01/2023 10:10 AM CDT Office Visit [address] [phone] Lisa Eastman NP Medicare ANNUAL (subsequent) Visit 07/01/2023 Travel 06/11/[address] [place] [address] Lisa Eastman NP TIER EXCEPTION (Xarelto 20 mg tablet DENIED) 05/30/[address] [address] Lisa Eastman NP Refill Request (Gabapentin, Rosuvastatin) 05/21/2023 Orders Only [facility] Scanner 1 scan: (1-Ord) [facility], [place] EXTREMITY LEFT VENOUS, 05/21/2023 from Last 3 Months Immunizations Name Administration Dates Next Due Influenza RIV4 (Age 18+ Years) PRESERV FREE 07/2019 Influenza Virus, Unspecified 01/17/2003,01/18/20 01 Influenza, High-dose Inactivated 12/13/2017 Influenza, High-dose Quadriv alent Inactivated 12/29/2020 Influenza, IIV3 (Age >=3 years) 11/23/2012,03/25,01/30/2008 Influenza, IIV4 11/13/2015,11/25/2014,12/14/2013 Influenza, IIV4 (=>6mos) MDV 11/01/2016 Influenza, Inactivated AIIV4 (Age 65+ Years) Preserv Free 12/19/2022,12/09/2021 Influenza, Inactivated IIV3 (Age 65+ Years) Preserv Free 11/29/2018 Pneumococcal Conj 20-valent (Prevnar 20) 023 Pneumococcal Poly,23-Valent (Pneumovax) 01/13/20 18,08/06/2010 Pneumococcal conj 13-Valent (Prevnar 13) 017,12/11/2016 Td (Age >=7 Years) 10/13/2021 Tdap 08/06/2010 Tuberculin (PPD) 06/06/2007 Zoster (Shingrix-RZV, recombinant) 05/24/2017, Zoster (Zostavax-ZVL, live) 08/11/2012 Family History Medical History Relation Name Comments Genitourinary Disease Father CAD/CA BG Good Health Father Diabetes Mother Good Health Mother Cancer-breast No Family History Cancer-ovarian No Family History Relation Name Status Comments Father Alive Mother Alive Social History Tobacco Use Types Packs/Day Years Used Date Smoking Tobacco: Former Cigarettes 0.3 20 1 03/22/1998 - 01/20/2019 Smokeless Tobacco: Never Tobacco Cessation:Counseling Given: Not Answered Comments:smokes very lightly 3-4 cigs/day Alcohol Use Standard Drinks/Week Comments Yes 0 (1 standard drink = 0.6 oz pur e alcohol) rarely PHQ-2 Answer Date Recorded PHQ-2 TOTAL SCORE 0 07/01/2023 Social Connections Answer Date Recorded Frequency of Communication with Friends and Fami ly 0 02/26/2023 Financial Resource Strain Answer Date R ecorded Difficulty of Paying Living Expenses 3 02/26/2023 Difficulty of Paying Living Expenses Not on file 02/26/2023 Food Insecurity Answer Date Recorded Worried About Running Out of Food in the Last Ye ar 1 02/26/2023 Transportation Needs Answer Date Record ed Lack of Transportation (Medical) 1 02/26/2023 Housing Stability Answer Date Recorded Unable to Pay for Housing in the Last Year 1 02/26/2023 Sex and Gender Information Value Date Recorded Sex Assigned at Not on file Gender Identity Not on file Sexual Orientation Not on file Obstetrics History Para Term AB IAB SAB Ectopic Multiple Livin g Live Births 2 2 Date Outcome GA Total Labor Labor/2nd/3rd Weight Sex Delivery Anes PTL Mayra A1 A5 Name Cl in Last Filed Vital Signs Vital Sign Reading Time Taken Comments Blood Pressure 108/68 08/10/2023 11:15 AM CDT Pulse 72 08/10/2023 11:15 AM CDT Temperature 37.1 ??C (98.8 ??F) 03/23/2023 2 :15 PM CORPORATE COMPLIANCE DIRECTOR Respiratory Rate 18 04/26/2023 2:29 PM CORPORATE COMPLIANCE DIRECTOR Oxygen Saturation 94% 05/18/2023 12: 57 PM CORPORATE COMPLIANCE DIRECTOR Inhaled Oxygen Concentration - - Weight 118.8 kg (261 lb 12. 8 oz) 08/10/2023 11:15 AM CDT with slippers Height 157.5 cm (5' 2) 08/10/2023 11:1 5 AM CDT Body Mass Index 47.88 08/10/2023 11:15 AM CDT Plan of Treatment Upcoming Encounters Date Type Department Care Team (Late st Contact Info) Description 10/14/2023 1:45 PM CDT Office Visit [address] [phone] Solis Burr-Glen Chawla MD [address] [facility] [address] [place] [address] 11/05/2023 1:00 PM CDT Office Visit [address] [phone] Maria Del Carmen Diallo, Pranav [address] [place], [place] [phone] Health Maintenance Due Date Last Done Comments COVID-19 vaccine series ( season) 2022 04/02/2021, 07/27/2020, 07/06/2020 Influenza for age 65+ 11/14/2023 12/19/2022 , 12/09/2021, 12/29/2020, Additional history exists Mammogram for age 45-75 12/22/2023 12/22/19, 12/25/2021, 12/18/2021, Additional history exists Depression screening for age 12+ 06/30/2024 07/01/2023, 06/18/2022, 06/15/2022, Additional history exists Medicare Wellness for age 65+ 07/01/2024 07/01/2023, 10/13/2021 BMI (ht and wt on same day) for age 18+ 08/09/2024 08/10/2023, 07/01/2023, 05/18/2023, Additional history exists Colonoscopy through age 75 02/24/202602/24, 02/20/2020, 03/05/2017, Additional history exists Lipids for age 45-75 10/13/2026 10/13/2021, 11/07/2019, 11/07/2019, Additional history exists Tetanus booster 10/14/2031 10/13/2021, 07/14, 08/06/2010 Tdap Completed 08/06/2010 Zoster (shingles) series for age 50+ Completed 05/24/2017, 03/24/2017, 08/11/2012 DEXA/DXA scan for age 65+ Completed 08/02/2018, 01/2014 Hepatitis C screening for ag e 18-79 Completed 10/13/2021 Pneumococcal series for age 65+ Completed 12/19/2022, 01/12/2018, 12/16/2016, Additional history exists Medical Devices Implanted Type Area Ballet Teacher Device Identifier Shelf Expiration Date Model / Serial / Lot Trident Ii Tritanium Clusterhole Acetabular Shell Implanted:Qty: 1 on 09/27/2020 by Jose Suárez MD at [facility] Right: Hip [employer] 02/25/2025 702-04-54E / / [id number] 6.5mm Low Profile Hex Screw Implanted:Qty: 1 on 09/27/2020 by Jose Suárez MD at [facility] Right: Hip [employer] 05/07/2025 [id number] / / [id number] Trident X3 10 Degree Polyethylene Insert Implanted:Qty: 1 on 09/27/2020 by Jose Suárez MD at [facility] Right: Hip [employer] 06/04/2023 [id number] / / [id number] Accolade Ii 132 Degree Neck Angle Hip Stem Implanted:Qty: 1 on 09/27/2020 by Jose Suárez MD at [facility] Right: Hip [employer] 04/26/2024 [id number] / / [id number] [employer] Ceramic V40 Femoral Head Implanted:Qty: 1 on 09/27/2020 by Jose Suárez MD at [facility] Right: Hip [employer] 05/15/2025 [id number] / / [id number] Procedures Procedure Name Priority Date/Time Associated Diagnosis Comments CBC WITH AUTO DIFFERENTIAL Routine 08/10/2023 12:14 PM CDT Pre-op exam Primary osteoarthritis of right knee BASIC METABOLIC PANEL Routine 08/10/2023 12:14 PM CDT Pre-op exam Primary osteoarthritis of right knee CBC WITH AUTO DIFFERENTIAL Routine 08/10/2023 12:14 PM CDT Pre-op exam Primary osteoarthritis of right knee EKG 12 LEAD Routine 08/10/2023 12:00 AM CDT Pre-op exam Primary osteoarthritis of right knee SCAN-ULTRASOUND REPORT 05/21/2023 12:00 AM CORPORATE COMPLIANCE DIRECTOR COLONOSCOPY 02/24/2023 7:20 AM CORPORATE COMPLIANCE DIRECTOR XR MAMMO NAFISA BILAT SCREEN Routine 12/21/2022 1:46 PM CDT Visit for screening mammogram ANTI HCV Routine 10/13/2021 2:00 PM CDT Need for hepatitis C screening test LIPID PANEL W REFLEX MEASURED LDL Routine 10/13/2021 2:00 PM CDT Lipid screening XR DXA BONE DENSITY 2 SITES AXIAL Routine 08/02/2018 2:51 PM CDT Post-menopausal from Last 3 Months or Most Recently Relevant to Health Maintenance Results * (ABNORMAL) CBC WITH AUTO DIFFERENTIAL (08/10/2023 12:14 PM CDT) WHITE BLOOD COUNT 10.1 4.5 - 11.0 thou/cu mm 08/10/2023 12:43 PM [facility] RED BLOOD COUNT 5.25(H) 4.00 - 5.20 mil/cu mm 08/10/2023 12:43 PM [facility] HEMOGLOBIN 16.4(H) 12.0 - 16.0 g/dL 08/10/2023 12:43 PM [facility] HEMATOCRIT 51.8(H) 33.0 - 51.0 % 08/10/2023 12:43 PM [facility] MCV 99 80 - 100 fL 08/10/2023 12:43 PM [facility] MCH 31.2 26.0 - 34.0 pg 08/10/2023 12:43 PM [facility] MCHC 31.7(L) 32.0 - 36.0 g/dL 08/10/2023 12:43 PM [facility] RDW 15.8(H) 11.5 - 15.5 % 08/10/2023 12:43 PM [facility] PLATELET COUNT 240 140 - 440 thou/cu mm 08/10/2023 12:43 PM [facility] MPV 11.4(H) 6.5 - 11.0 fL 08/10/2023 12:43 PM [facility] % NEUT 64.2 % 08/10/2023 12:43 PM [facility] % LYMPH 25.2 % 08/10/2023 12:43 PM [facility] % MONO 8.1 % 08/10/2023 12:43 PM CDT [facility] % EOS 2.0 % 08/10/2023 12:43 PM T [facility] % BASO 0.5 % 08/10/2023 12:43 PM [facility] ABSOLUTE NEUTROPHILS 6.5 1.7 - 7.0 thou/cu mm 08/10/2023 12:43 PM T [facility] ABSOLUTE LYMPHOCYTES 2.5 0.9 - 2.9 thou/cu mm 08/10/2023 12:43 PM T [facility] ABSOLUTE MONOCYTES 0.8 <0.9 thou/cu mm 08/10/2023 12:43 PM [facility] ABSOLUTE EOSINOPHILS 0.2 <0.5 thou/cu mm 08/10/2023 12:43 PM [facility] ABSOLUTE BASOPHILS 0.1 <0.3 thou/cu mm 08/10/2023 12:43 PM [facility] Blood BLOOD SPECIMEN / Unknown Venipuncture / Unknown 08/10/2023 12:14 PM CDT 08/10/2023 12:14 PM CDT Lisa Eastman NP HEMATOLOGY [facility] [address] [place] [address] * (ABNORMAL) BASIC METABOLIC PANEL (08/10/2023 12:14 PM CDT) SODIUM 142 136 - 145 mmol/L 08/10/2023 1:02 PM [facility] POTASSIUM 4.4 3.5 - 5.1 mmol/L 08/10/2023 1:02 PM [facility] CHLORIDE 103 98 - 107 mmol/L 08/10/2023 1:02 PM [facility] CO2,TOTAL 27 22 - 29 mmol/L 08/10/2023 1:02 PM [facility] ANION GAP 12 5 - 18 08/10/2023 1:02 PM [facility] GLUCOSE 111(H) 70 - 99 mg/dL 08/10/2023 1:02 PM T [facility] CALCIUM 9.5 8.8 - 10.2 mg/dL 08/10/2023 1:02 PM [facility] BUN 14 8 - 23 mg/dL 08/10/2023 1:02 PM [facility] CREATININE 0.68 0.50 - 0.90 mg/dL 08/10/2023 1:02 PM [facility] BUN/CREAT RATIO 21(H) 10 - 20 1:02 PM [facility] eGFR >90 >90 mL/min/1.7 3m2 08/10/2023 1:02 PM [facility] Comment:As of 2021, eG FR is calculated by the CKD-EPI creatinine equation without race adjustment. ??eGFR can be influenced by muscle mass, exercise, and diet. ??The reported eGFR is an estimation only and is only applicable if the renal function is stable. Blood BLOOD SPECIMEN / Unknown Venipuncture / Unknown 08/10/2023 12:14 PM CDT 08/10/2023 12:14 PM CDT Lisa Eastman NP CHEMISTRY [facility] [address] [place] [address] * EKG 12 LEAD (08/10/2023 12:00 AM CDT) Lisa Eastman NP EKG ORD * SCAN-ULTRASOUND REPORT (05/21/2023 12:00 AM CORPORATE COMPLIANCE DIRECTOR) Anatomical Region Laterality Modality Other Scanner OTHER * COLONOSCOPY (02/24/2023 7:20 AM CORPORATE COMPLIANCE DIRECTOR) 02/24/2023 7:20 AM CORPORATE COMPLIANCE DIRECTOR Narrative Transcriptions Juan Doe MD - 02/24/2023 8:18 AM CST Patient Name: Skylar Flynn Procedure Date: 02/24/2023 Gender: Female Date of : 1950 Admit Type: Ambulatory Procedure: Colonoscopy Proceduralist: Juan Doe MD [facility] MD: Juan Doe MD Indications/Pre-Op Diagnosis: High risk colon cancer surveillance:Personal history of colonic polyps Medications: Propofol per Anesthesia Procedure Description: The patient had risks, benefits and alternatives explained to andgave informed consent. The patient had a stable cardiopulmonary status and judged an adequate candidate for conscious sedation. The endoscope [id number] was passed through the anus with the intention of advancing to the cecum. The scope was advanced to the splenic flexure before the procedure was aborted. Medications were given. The colonoscopy was performed with difficulty due toinadequate bowel prep. This procedure was unusual compared to a typicalprocedure, requiring substantially greater intensity of mental effort. The procedure duration was 20 minutes longer than usual. Complications: No immediate complications. Estimated Blood Loss & Specimen: Estimated blood loss: none. Findings: The perianal and digital rectal examinations were normal. Multiple large-mouthed and medium-mouthed diverticula were found inthe sigmoid colon. Impressions/Post-Op Diagnosis: - Diverticulosis in the sigmoid colon. - No specimens collected. - The procedure was aborted due to inadequate bowel prep. Recommendation: - Discharge patient to home. - Clear liquid diet. - Recommended doing another day of prep today with enema in themorning. Patient refuses. - Recommend short interval repeat colonoscopy attempt with 2 day prep and enema the morning of procedure. Juan Doe MD 02/24/2023 8:17:53 AM Note Initiated On: 02/24/2023 7:20 AM Juan Doe MD PROCEDURE ORD * XR MAMMO NAFISA BILAT SCREEN (12/21/2022 1:46 PM CDT) Anatomical Region Laterality Modality BREASTS, Breast Left, Breast Right Bilateral Mammography Impressions 12/22/2022 3:43 PM CDT ??There is no radiographic evidence for malignancy. ??Recommend annual mammograms. MAMMOGRAM ASSESSMENT: ??ACR 1 Negative PATIENTS: You will also receive a letter with your examination results in an easy to read format. ??If you have questions about your results, please contact your referring provider. Narrative 12/22/2022 3:43 PM CDT For Patients: As a result of the Century Cures Act, medical imaging exams and procedure reports are released immediately into your electronic medical record. You may view this report before your referring provider. If you have questions, please contact your health care provider. XR MAMMO NAFISA BILAT SCREEN [[id number]] CLINICAL HISTORY: ??This is an asymptomatic 72 y.o. patient. INDICATION FOR EXAM: Mammogram Screening. TECHNIQUE: CC & MLO views were obtained. ??This study was evaluated with the assistance of Computer-Aided Detection. Breast Tomosynthesis was used in interpretation. COMPARISON FILM: Yes 12/18/21 [facility] 04/06/19 [employer] FINDINGS: ??The breasts are almost entirely fatty. There are no dominant masses, suspicious micro calcifications or areas of architectural distortion. Lisa Eastman DRAFTER CONSTRUCTION MAMMO * (ABNORMAL) LIPID PANEL W REFLEX MEASURED LDL (10/13/2021 2:00 PM CDT) CHOLESTEROL,TOTAL 144 100 - 199 mg/dL 10/13/2021 2:53 PM CDT [facility] TRIGLYCERIDES 276(H) <150 mg/dL 10/13/2021 2:53 PM CDT [facility] HDL CHOLESTEROL 29(L) >40 mg/dL 2:53 PM CDT [facility] NON-HDL CHOLESTEROL 115 <145 mg/dl 10/13/2021 2:53 PM CDT [facility] CHOL/HDL RATIO 4.97(H) <4.50 10/13/2021 2:53 PM CDT [facility] LDL CHOLESTEROL 60 <=130 mg/dL 10/13/2021 2:53 PM CDT [facility] VLDL CHOLESTEROL 55(H) <=30 mg/dL 10/13/2021 2:53 PM CDT [facility] PROVIDER ORDERED STATUS RANDOM 10/13/2021 2:53 PM CDT [facility] Blood BLOOD SPECIMEN / Unknown Venipuncture / Unknown 10/13/2021 2:00 PM CDT 10/13/2021 2:04 PM CDT Lisa Eastman NP CHEMISTRY [facility] [address] [place] [address] * ANTI HCV (10/13/2021 2:00 PM CDT) HEPATITIS C ANTIBODY Non-React adilene Non-React adilene 10/14/2021 9:59 PM CDT [facility] Comment:Antibodies to HCV no t detected; does not exclude the possibility of exposure to HCV. Blood BLOOD SPECIMEN / Unknown Venipuncture / Unknown 10/13/2021 2:00 PM CDT 10/13/2021 2:04 PM CDT Lisa Eastman DRAFTER CONSTRUCTION SEND OUTS [facility] [address] [place] [address], [place] * (ABNORMAL) XR DXA BONE DENSITY 2 SITES [80639.1] (08/02/2018 2:51 PM CDT) Anatomical Region Laterality Modality Spine, HIPS, HIPL, HIPR Bone Den sitometry Narrative 08/04/2018 2:47 PM CDT Please see scanned document for results of this study. Lisa Eastman NP DEXA from Last 3 Months or Most Recently Relevant to Health Maintenance Advance Directives * DNR (Latest Code Status on File) Date Activated Date Inactivated Comments 02/26/2023 5:04 PM 03/01/2023 9:07 PM Question Answer Comments Code Status Discussion: Reviewed Preferences * Full Code Date Activated Date Inactivated Comments 02/26/2023 3:16 PM 02/26/2023 5:04 PM Question Answer Comments Code Status Discussion: Unable to Assess Preferences, Provider to review later * Full Code Date Activated Date Inactivated Comments 02/24/2023 6:39 AM 02/24/2023 11:39 AM Question Answer Comments Code Status Discussion: Unable to Assess Preferences, Provider to review later * Full Code Date Activated Date Inactivated Comments 09/27/2020 6:09 AM 09/28/2020 2:27 PM Question Answer Comments Code Status Discussion: Discussed * Full Code Date Activated Date Inactivated Comments 02/20/2020 7:34 AM 02/20/2020 12:53 PM Question Answer Comments Code Status Discussion: Discussed Care Teams Product Blending Supervisor Relationship Specialty Start Date End Date Lisa Eastman NP [address] [place] [address] PCP - General Family Practice 02/18/12 [facility] [place] [address] [place] [address] 03/01/23 Selin Fernández, RN [address] [place] [address] Registered Nurse 06/29/23
[2023-08-19] MEDS: LACTATED RINGERS 1000 ML 1,000 ML 100 ML IV ×2 (08:20→10:40)
[2023-08-19] MEDS: SODIUM CHLORIDE 0.9 % (FLUSH) 10 ML SYRINGE IVF (08:20)
[2023-08-19] MEDS: OXYCODONE (CR) 10 MG TAB.ER.12H PO (08:40)
[2023-08-19] MEDS: ACETAMINOPHEN 500 MG TABLET 1000 MG PO ×3 (08:40→20:59)
[2023-08-19] MEDS: CELECOXIB 200 MG CAPSULE PO (08:40)
[2023-08-19] MEDS: MIDAZOLAM HCL 1 MG/ML inj IVP (08:45)
[2023-08-19] MEDS: fentaNYL 100 MCG/2 ML inj IVP (08:45)
--- NOTE | 2023-08-19 08:58 | SUR.PREOP ---
TIME?OUT:? 0840, right knee PT/RN/MDA?VERIFICATION?OF?SURGICAL?SITE,?PROCEDURE,?AND?CONSENT OBTAINED?PRIOR?TO?INVASIVE?PROCEDURE.
[2023-08-19] MEDS: CEFAZOLIN 2 GM INJ IVP (09:15)
[2023-08-19] MEDS: TRANEXAMIC ACID 100 MG/ML INJ 1000 MG IV (09:20)
--- NOTE | 2023-08-19 09:33 | SUR.OPER ---
Patient has sore on all extremities and body. SDS Nurse stated she has squamous cell.
--- NOTE | 2023-08-19 09:46 | P.NB_ITS ---
Nerve Block Nerve Block Time Seen by Provider: 08:43 Date Seen: 08/19/23 Type of block requested by surgeon for post-operative analgesia: adductor canal Side: right Time out performed: Yes Verification of patient name: Yes Verification of date of : Yes Site marking: site marked Name of person performing procedure: Mykel Continuous monitoring Was continuous monitoring of O2 sat, B/P, ordnance artificer helper, recorded every 15 minutes?: Yes Procedure Checklist: sterile prep, needles and gloves Ultrasound guided. Images saved: Yes Medications given in 5ml increments after negative aspiration: Ropivicaine %: 0.5 mL: 20 Needle gauge: 20 Decadron (mg): 10 Precedex (mcg): 25 Patient tolerated procedure well: Yes Additional comments: Needle noted adjacent to nerve Block Charges Block Charge (with Pro Fee): Femoral Nerve Use of Ultrasound Machine for Block: Yes- US Guidance/pain block
--- NOTE | 2023-08-19 09:47 | W.PM.NB ---
Nerve Block Nerve Block Time Seen by Provider: 08:43 Date Seen: 08/19/23 Type of block requested by surgeon for post-operative analgesia: geniculars Side: right Time out performed: Yes Verification of patient name: Yes Verification of date of : Yes Site marking: site marked Name of person performing procedure: Mykel Continuous monitoring Was continuous monitoring of O2 sat, B/P, quality assurance monitor, recorded every 15 minutes?: Yes Procedure Checklist: sterile prep, needles and gloves Medications given in 5ml increments after negative aspiration: Ropivicaine %: 0.5 mL: 9 Needle gauge: 25 Patient tolerated procedure well: Yes Block Charges Block Charge (with Pro Fee): Genicular Nerve Block Use of Ultrasound Machine for Block: No
--- NOTE | 2023-08-19 09:47 | W.ANESCHARGE ---
Anesthesia Charges Start Date/Time Anesthesia Start Date: 08/19/23 Anesthesia Start Time: 08:55 Stop Date/Time Anesthesia Stop Date: 08/19/23 Anesthesia Stop Time: 11:18 Summary Extremes of Age - Over 70 or under 1: MDA
--- NOTE | 2023-08-19 10:34 | CRLHL7_ITS ---
For Patients: As a result of the Century Cures Act, medical imaging exams and procedure reports are released immediately into your electronic medical record. You may view this report before your referring provider. If you have questions, please contact your health care provider. INDICATION: Total knee arthroplasty. TECHNIQUE: Two view RIGHT knee portable. IMPRESSION : Prosthetic components intact. Articulating type prosthesis Patellar resurfacing. Anatomic alignment. No acute osseous lesions. Dictated by Jefry Mota MD @ 08/22/2023 5:52:46 PM (Electronically Signed)
--- NOTE | 2023-08-19 10:37 | PM.ORPRC ---
Procedure Note Date of procedure: 08/19/23 Procedure: PREOPERATIVE DIAGNOSIS: Right knee osteoarthritis POSTOPERATIVE DIAGNOSIS: Right knee osteoarthritis NAME OF OPERATION: Right total knee arthroplasty SURGEON: Brandon Merino MD SKATESMAN: ASH Anaya ANESTHESIA: Spinal ESTIMATED BLOOD LOSS: 0 mL COMPLICATIONS: None SPECIMENS: None DRAINS: None PREOPERATIVE ANTIBIOTICS: Ancef 2 grams, antibiotic impregnated cement IMPLANTS: 1. J[employer]J Attune revision CRS # 8 posterior stabilized femur, with a 14 mm x 50 mm cemented stem 2. #6 revision CRS fixed-bearing tibia, with a 14 mm x 50 mm cemented stem 3. # 8 posterior stabilized, 8 mm fixed-bearing constrained polyethylene 4. 38 patella INDICATIONS: The patient is a 72-year-old with a longstanding history of severe, unrelenting right knee pain secondary to end-stage (grade IV) right knee osteoarthritis. Despite appropriate nonoperative management, including activity modification, anti-inflammatories, dnab-ghn-ldooyiw pain medication, bracing, physical therapy, and injections they continue to have pain and disability. Operative intervention was offered. The risks, benefits and expected outcomes were discussed in detail. These included but were not limited to: Infection, bleeding, injury to blood vessel or nerve, venous thromboembolism. All questions were answered to their satisfaction. Use of an pediatric physical therapy assistant was necessary throughout the case for patient positioning and safety, soft tissue retraction, and closure. A modifier 22 should be added to this case. The patient's weight of 118 kg with a BMI of 48 made the dissection more challenging. Additionally, in an attempt to reduce the risk of aseptic loosening secondary to morbid obesity, stemmed components were utilized. These factors added time and cost to complete the case. PROCEDURE: Spinal anesthesia was administered. The patient was placed supine on the operating table. The pediatric physical therapy assistant made sure the patient was positioned appropriately. The lower extremity was prepped and draped in the usual sterile fashion. The limb was exsanguinated with the Rufus bandage. The pneumatic tourniquet was inflated to 300 mmHg. A standard anterior incision was made with the knee in flexion. Subcutaneous dissection was sharply taken through fascial layer #1. Full-thickness medial and lateral flaps were elevated. The pediatric physical therapy assistant retracted the soft tissues and protected them throughout the case. A standard subvastus approach was made. The patella was subluxed. The infrapatellar fat pad was debrided. The menisci and cruciate ligaments were sharply d?brided. Marginal osteophytes were d?brided with the rongeur. The drill was used to penetrate the femoral canal. The canal was aspirated and irrigated with pulse lavage. The intramedullary femoral guide was placed for a 5-degree valgus cut, removing 12 mm off the distal femur. The saw was used to make the cut. Whitesides line and the trans epicondylar axis were marked. The femoral sizing guide was pinned onto the distal femur. Three degrees of external rotation nicely parallels the transepicondylar axis. Pins were placed for posterior referencing. The four-in-one cutting guide was pinned onto the distal femur. The anterior, posterior, and chamfer cuts were made. The pediatric physical therapy assistant protected the collateral ligaments. The revision trial was placed. The box cuts were made. The drill was used x2. The stemmed, boxed trial was placed and was an excellent fit. Attention was then turned to the proximal tibia. The extramedullary tibial guide was placed for a neutral varus/valgus cut with 5 degrees of posterior slope, removing 2 mm based off the medial tibial surface. The pediatric physical therapy assistant protected the collateral ligaments and the neurovascular bundle. The saw was used to make the cut. Trial components were placed. The knee was nicely balanced in both flexion and extension. The trial components were removed. The tray was placed in appropriate rotation, parallel to our tibial cutting pins. It was pinned by the pediatric physical therapy assistant and the drill x2 was used. The stemmed tibial trial was placed. The punch was used. The tray was removed. The punch was used again. Attention was then turned to the patella. [place] patellar thickness was 21.5 mm. The lobster claw resection guide was used with the 9.5 mm viky. The saw was used to make the cut. Drill holes were made by the pediatric physical therapy assistant. The trial was placed and was an excellent fit. Cancellous surfaces were irrigated with pulse lavage and thoroughly dried by the pediatric physical therapy assistant. We cemented the tibial component, then the femoral component. We placed the trial 6 mm polyethylene onto the tibial tray. The knee was brought into full extension. We then cemented the patellar component. Excessive cement was removed. The cement was allowed to harden. We then trialed 6 mm and 8 mm polyethylene. The 8 mm allowed the knee to still come to full extension and was stable to varus/valgus stress at 0 and 30?. We therefore impacted the 8 mm poly. The knee was taken through a range of motion and was found to be nicely balanced in both flexion and extension. The patella tracks centrally. The pediatric physical therapy assistant did a three minute dilute Betadine solution soak. The pediatric physical therapy assistant irrigated the wound with 3 liters of normal saline via pulse lavage. The pediatric physical therapy assistant reapproximated the extensor mechanism with #1 Vicryl in an interrupted hyjrkf-fc-hmckg fashion. The pediatric physical therapy assistant then ran the extensor mechanism with a #1 PDO Stratafix. The pediatric physical therapy assistant closed the subcutaneous tissues with a 3-0 Stratafix and the skin with a running 3-0 Stratafix in a subcuticular fashion. Glue was used to seal the skin. The pediatric physical therapy assistant placed a dry dressing. Sponge and needle counts were correct x2. The patient tolerated the procedure well. There were no apparent complications. They were carefully transferred to the hospital bed and taken to the postanesthesia care unit in satisfactory condition. PLAN: The patient will be mobilized with physical therapy. The usual dose of Xarelto will be restarted tomorrow for DVT prophylaxis. They will be discharged to home once medically appropriate.
--- NOTE | 2023-08-19 12:18 | SUR.PHASEI ---
patient met pacu d/c criteria
[2023-08-19] MEDS: HYDROmorphone 0.5 mg/0.5 ml inj IVP ×2 (13:24→14:34)
[2023-08-19] MEDS: OXYCODONE 5 MG TABLET PO ×3 (13:24→17:58)
--- NOTE | 2023-08-19 14:17 | P.ANES_ITS ---
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
[2023-08-19] MEDS: CEFAZOLIN 2 GM in 0.9 % SODIUM CHLORIDE Mini-bag 100 ML IVPB ×2 (15:28→23:04)
--- NOTE | 2023-08-19 15:29 | P.IMCN_ITS ---
Date of Consult Consult date: 08/19/23 Requesting Physician: Orthopedics Primary Care Provider: Lisa Eastman CNP Consult Narrative Narrative: HOSPITALIST CONSULT NAME OF OPERATION: Right total knee arthroplasty SURGEON: Brandon Merino MD ANESTHESIA: Spinal ESTIMATED BLOOD LOSS: 0 mL COMPLICATIONS: None The hospital medicine team was asked by the orthopedic surgery team to manage the patient's chronic pain, hx of b/l PE, COPD, anxiety, SOPHIA. From Pre-op appt/PCP ECG: normal sinus rhythm 72 bpm right bundle branch block Negative stress test 04/07/23. Patient is cleared for planned procedure. Recommend ONLY Spinal and local black at knee due to LUNG Disease And prior history of PE and COPD. There have been no perioperative complications. Updated and reviewed the active medical problems, past medical history, past surgical history, social history, allergies and medications in our electronic EMR. PHYSICAL EXAM: CODE STATUS: FULL CODE CONSTITUTIONAL: Conversive, good historian. A/O. Knows setting and context. VITAL SIGNS: see record. HEENT: Normocephalic, atraumatic. PERRL, EOMI, conjunctivae pink, no scleral icterus. Ears and nose externally normal. Pharynx normal. NECK: No JVD. No carotid bruit, no thyromegaly, no adenopathy. CHEST: Clear to auscultation bilaterally HEART: S1 and S2 normal. ABDOMEN: Flat, soft, nontender. Normal bowel sounds. Moderately obese. EXTREMITIES: No edema. MUSCULOSKELETAL: right knee SDI NEURO: Cranial nerves intact. Mentation normal. Normal affect. SKIN: No rashes, petechiae, concerning changes PSYCHIATRIC: Mentation normal. INVESTIGATIONS: EMR Reviewed; Pre-OP Reviewed DISPOSITION: DVT: Agree with Ortho team decision - restart Xarelto POD#1 GI: PO intake PFSH PFSH Medical History (Updated 08/19/23 @ 16:33 by Lisa Ness MD) History of pulmonary embolism ?Z86.711 - Personal history of pulmonary embolism (ICD-10) Depression with anxiety ?F41.8 - Other specified anxiety disorders (ICD-10) Fibromyalgia ?M79.7 - Fibromyalgia (ICD-10) Bilateral knee pain ?M25.561 - Pain in right knee (ICD-10) ?M25.562 - Pain in left knee (ICD-10) DVT (deep venous thrombosis) ?I82.409 - Acute embolism and thrombosis of unspecified deep veins of unspecified lower extremity (ICD-10) Squamous cell carcinoma Sleep apnea ?G47.30 - Sleep apnea, unspecified (ICD-10) COPD (chronic obstructive pulmonary disease) ?J44.9 - Chronic obstructive pulmonary disease, unspecified (ICD-10) Surgical History (Updated 08/19/23 @ 16:34 by Lisa Ness MD) History of left knee replacement ?Z96.652 - Presence of left artificial knee joint (ICD-10) Status post total right knee replacement ?Z96.651 - Presence of right artificial knee joint (ICD-10) History of Mohs surgery for squamous cell carcinoma of skin ?Z98.890 - Other specified postprocedural states (ICD-10) ?Z85.828 - Personal history of other malignant neoplasm of skin (ICD-10) History of right hip replacement (~2020) ?Z96.641 - Presence of right artificial hip joint (ICD-10) H/O arthroscopy of shoulder (2003) ?Z98.890 - Other specified postprocedural states (ICD-10) History of section ?Z98.891 - History of uterine scar from previous surgery (ICD-10) History of cataract surgery ?Z98.49 - Cataract extraction status, unspecified eye (ICD-10) Social History What is your current living situation?: I presently have a place to live Problems where you live: no known problems In the past 12 months, utilities in danger of being shut off: no In past 12 months, lack of transportation kept you from medical appts, meetings, work, or getting things needed for daily living: no In the past 12 mos, have been you worried that your food would run out before you had money to buy more?: never true In the past 12 mos, the food you bought just didn't last and you didn't have money to buy more?: never true Highest level of school completed/degree received: decline to answer Smoking Status: Former smoker What tobacco products do you use: cigarettes Smoking packs per day: 1 Smoking cigarettes per day: 20.0 Years smoked: 25 Smoking pack-years: 25.00 Smoking quit date/years: >15 years ago Do you use any of these nicotine containing products: None Second hand tobacco smoke exposure: Yes How often do you have a drink containing alcohol: 2-3 times a week Alcohol type: beer How many standard drinks containing alcohol do you have on a typical day: 1 or 2 How often do you have six or more drinks on one occasion: Never AUDIT-C Alcohol total score: 3 Non-prescribed substance use: denies use Caffeine: Yes How often does anyone, including family, friends and others, physically hurt you : never How often does anyone, including family, friends and others, insult or talk down to you: never How often does anyone, including family, friends and others, threaten you with harm: never How often does anyone, including family, friends and others, scream or curse at you: never service: No Meds Home Medications and Allergies Home Medications ?Medication ?Instructions ?Recorded ?Confirmed ?Type albuterol sulfate 90 mcg/actuation 1 - 2 puff inhalation Q6H PRN 02/03/23 08/19/23 History aerosol inhaler duloxetine 30 mg capsule,delayed 30 mg PO DAILY 02/03/23 08/19/23 History release gabapentin 300 mg capsule 600 mg PO TID 02/03/23 08/19/23 History hydroxyzine pamoate 25 mg capsule 25 mg PO HS PRN anxiety 02/03/23 08/19/23 History rivaroxaban 20 mg tablet (Xarelto) 20 mg PO DAILY 02/03/23 08/19/23 History rosuvastatin 20 mg tablet 20 mg PO HS 02/03/23 08/17/23 History cholecalciferol (vitamin D3) 25 1,000 unit PO DAILY 08/17/23 08/19/23 History mcg (1,000 unit) tablet thiamine HCl (vitamin B1) 50 mg 50 mg PO DAILY 08/17/23 08/19/23 History tablet Allergies Allergy/AdvReac Type Severity Reaction Status Date / Time No Known Drug Allergies Allergy Verified 07/19/23 13:38 Exam Const: Vital Signs, click to edit/add: Vital Signs - 24 hr 08/19/23 07:56 08/19/23 08:43 08/19/23 08:50 Temperature 97.9 F Pulse Rate 73 66 77 Respiratory Rate 20 20 20 Blood Pressure 146/80 H 125/83 134/79 Pulse Oximetry 90 94 94 Oxygen Delivery Me thod Room Air OxyMask OxyMask Oxygen Flow Rate 5 5 08/19/23 11:15 08/19/23 11:20 08/19/23 11:25 Temperature 97.2 F L Pulse Rate 100 90 84 Respiratory Rate 20 18 20 Blood Pressure 122/68 118/71 112/74 Pulse Oximetry 95 94 95 Oxygen Delivery Me thod OxyMask Oxygen Flow Rate 6 08/19/23 11:30 08/19/23 11:35 08/19/23 11:40 Temperature 97.0 F L Pulse Rate 83 82 78 Respiratory Rate 18 16 18 Blood Pressure 116/73 121/73 119/69 Pulse Oximetry 96 94 93 Oxygen Delivery Me thod Oxygen Flow Rate 08/19/23 12:20 08/19/23 12:35 08/19/23 12:49 Temperature 97.7 F 97.6 F 97.7 F Pulse Rate 70 81 85 Respiratory Rate 18 18 17 Blood Pressure 137/85 131/77 140/67 H Pulse Oximetry 92 86 L 85 L Oxygen Delivery Me thod Nasal Cannula Nasal Cannula Nasal Cannula Oxygen Flow Rate 2 2 2 08/19/23 13:36 08/19/23 14:40 Temperature 97.7 F 97.6 F Pulse Rate 88 83 Respiratory Rate 16 16 Blood Pressure 143/75 H 133/70 Pulse Oximetry 88 84 L Oxygen Delivery Me thod Nasal Cannula Nasal Cannula Oxygen Flow Rate 1 2 Assessment and Plan Assessment and plan (1) Status post total right knee replacement: Problem comment: Hospital Medicine team is happy to follow thru to discharge. A routine post- operative course is expected. Restart her Xarelto POD1 08/19/23 Dr. Merino Status: Acute (2) History of pulmonary embolism: Problem comment: hx of bilateral PE chronic lifelong anticoagulation Status: Acute (3) Chronic anticoagulation: Problem comment: xarelto to restart am of POD#1 for hx of bilateral PEs Status: Acute (4) Sleep apnea: Problem comment: oxygen/CPAP Status: Acute (5) COPD (chronic obstructive pulmonary disease): Problem comment: good respiratory hygiene ISP, aerobika Status: Acute (6) Depression with anxiety: Problem comment: continue home meds: atarax, cymbalta, gabapentin Status: Acute (7) Fibromyalgia: Status: Acute
[2023-08-19] MEDS: hydrOXYzine pamoate 25 MG CAPSULE PO (17:58)
--- NOTE | 2023-08-19 19:11 | CRLHL7_ITS ---
For Patients: As a result of the Century Cures Act, medical imaging exams and procedure reports are released immediately into your electronic medical record. You may view this report before your referring provider. If you have questions, please contact your health care provider. INDICATION: Hypoxia. TECHNIQUE: Chest radiograph, 1 view. COMPARISON: None. FINDINGS: Cardiovascular/Mediastinum: Normal heart size. Unremarkable. Lungs: No focal consolidation. Linear band like opacification in the lungs bilaterally, likely subsegmental atelectasis and/or scarring. Airways: Trachea remains midline. Pleura: No pleural effusions or pneumothorax. Bones: No acute osseous abnormalities. Upper abdomen: Unremarkable. IMPRESSION: No acute cardiopulmonary process. Dictated by Tavo Escobar MD @ 08/19/2023 8:35:24 PM (Electronically Signed)
[2023-08-19 19:32] LABS: ABG PCO2 55 mmHG (35-45); Base Excess ABG 0.6 mmol/L (-3.0-3.0); Carboxyhemoglobin* 3.1 % (0.0-5.0); HCO3 ABG 28 mmol/L (21-28); Oxygen Saturation ABG 94 % (92-100); PO2 ABG 76.2 mmHG (80-105); TCO2 ABG 25 mmol/l (21-30); pH ABG 7.31 (7.35-7.45)
[2023-08-19 19:39] LABS: Basophils Percent Auto 0.1 % (0.0-3.0); Hematocrit 47.9 % (33.0-51.0); Hemoglobin* 14.9 gm/dL (12.0-16.0); Immature Granulocytes Pct Auto 0.2 %; Lymphocytes Percent Auto 4.8 % (20-44); Mean Corpuscular HGB Conc 31 gm/dL (32-36); Mean Corpuscular Hemoglobin 30 pg (26-34); Mean Corpuscular Volume 98 fL (80-100); Monocytes Percent Auto 2.8 % (0.0-11.0); Neutrophils Percent Auto 92.1 % (42.0-72.0); Platelet Count* 203 K/uL (140-440); RDW Coefficient of Variation % 15.2 % (11.5-15.5); Red Blood Count 4.91 m/uL (4.00-5.20); White Blood Count* 13.82 K/uL (4.50-11.00)
--- NOTE | 2023-08-19 19:39 | PC.NURSE ---
End of shift: Patient pleasant and cooperative, A&O. VSS, afebrile. SpO2 noted to be as low as 82% on 2L while dozing off. Patient got into bed and CPAP was applied with 2L O2 bled in and sats noted to be as low as 79%, MD notified, see orders for details. O2 increased to 4L per MD order with no improvement. RT consulted. SpO2 currently 90% on CPAP with O2 bled in. Got up to bedside commode 1assist-walker/gait belt. Patient reports pain this shift managed with PRN medication, see MAR.
[2023-08-19 19:52] LABS: Chloride* 103 mmol/L (96-114); Potassium* 5.1 mmol/L (3.6-5.1); Sodium* 136 mmol/L (135-149)
[2023-08-19 19:55] LABS: Anion Gap 4 mEq/L (7-15); Blood Urea Nitrogen* 18 mg/dL (7-30); Calcium* 9.1 mg/dL (8.4-10.6); Carbon Dioxide* 29 mmol/L (20-32); Creatinine* 0.6 mg/dL (0.5-1.5); Est. Creatinine Clearance* 40.81; Estimated Glomerular Filt Rate 96 ml/min; Glucose* 224 mg/dL (60-115)
[2023-08-19 20:05] LABS: Slide Review Reflex No
[2023-08-19 20:07] LABS: Troponin I* 0.01 ng/mL (0.01-0.04)
[2023-08-19] MEDS: SENNOSIDES 1 TAB TABLET 2 TAB PO (20:59)
[2023-08-19] MEDS: ROSUVASTATIN CALCIUM 10 MG TABLET 20 MG PO (20:59)
[2023-08-19] MEDS: GABAPENTIN 300 MG CAPSULE 600 MG PO (20:59)
[2023-08-19 21:03] LABS: NT Pro B Type NatriureticPept* 115 pg/mL
[2023-08-20] MEDS: OXYCODONE 5 MG TABLET PO ×2 (02:09→07:26)
[2023-08-20 02:12] VITALS: BP 135/87; PULSE 81; RESP 20; TEMP 36.4; O2SAT 86
[2023-08-20] MEDS: ACETAMINOPHEN 500 MG TABLET 1000 MG PO ×2 (03:52→09:35)
--- NOTE | 2023-08-20 05:39 | PC.NURSE ---
Shift note: Pt has been on CPAP with 2L oxygen throughout the night. O2 has been between 85 and 88 but drop when patient is sleeping. Pain level has been rated at 8 and 10. PRN pain med given as ordered. Dressing appeared clean and dry. Ice pack applied. Pt ambulated with A1, walker and GB to and from . Pt was alert and oriented , Vitally stable. Tolerated regular diet well.
[2023-08-20 06:28] LABS: HCO3 VBG 28 mmol/L (21-28); PCO2 VBG 54 mmHG (40-50); PO2 VBG 59.2 mmHG (25-47); pH VBG 7.324 (7.32-7.43)
[2023-08-20 06:32] LABS: Basophils Percent Auto 0.1 % (0.0-3.0); Hematocrit 44.1 % (33.0-51.0); Hemoglobin* 13.8 gm/dL (12.0-16.0); Immature Granulocytes Pct Auto 1.4 %; Lymphocytes Percent Auto 8.6 % (20-44); Mean Corpuscular HGB Conc 31 gm/dL (32-36); Mean Corpuscular Hemoglobin 31 pg (26-34); Mean Corpuscular Volume 98 fL (80-100); Monocytes Percent Auto 8.3 % (0.0-11.0); Neutrophils Percent Auto 81.6 % (42.0-72.0); Platelet Count* 214 K/uL (140-440); RDW Coefficient of Variation % 14.9 % (11.5-15.5); Red Blood Count 4.49 m/uL (4.00-5.20); White Blood Count* 13.21 K/uL (4.50-11.00)
[2023-08-20 06:33] LABS: Slide Review Reflex No
[2023-08-20 06:49] LABS: Potassium* 5.1 mmol/L (3.6-5.1); Sodium* 135 mmol/L (135-149)
[2023-08-20 06:52] LABS: Blood Urea Nitrogen* 21 mg/dL (7-30); Creatinine* 0.6 mg/dL (0.5-1.5); Est. Creatinine Clearance* 40.81; Estimated Glomerular Filt Rate 96 ml/min
[2023-08-20 06:53] LABS: INR 0.93 (0.91-1.10)
[2023-08-20 07:24] VITALS: BP 124/65; PULSE 71; RESP 18; TEMP 37.1; O2SAT 92
--- NOTE | 2023-08-20 08:11 | PM.ORPN ---
Subjective Subjective Time Seen by Provider: 07:55 Date Seen: 08/20/23 Principal diagnosis: Day 1 s/p right total knee arthroplasty Interval history: Skylar is doing well. During our visit, she c/o severe 10 out of 10 right knee pain that worsens with the slightest of movement, even though she appears to be comfortably eating her breakfast, watching TV and conversing without distress. Denies: chest pain, SOB, fever, chills, numbness/tingling distally. Denies bowel movement postoperatively also denies flatulence. Patient has outpatient physical therapy scheduled to begin next week at [facility] in [place]. Overnight, patient had intermittent periods of hypoxemia. Patient has a known history of COPD and SOPHIA for which she has a CPAP, but patient is not compliant with use of her CPAP. Patient asked about a narcotic medication stronger than oxycodone for pain control. I explained to Skylar that I do not recommend this because of pulmonary problems and the risk of respiratory depression. Ortho Exam Narrative Exam Narrative: Patient is alert and oriented x3. No acute distress. Converses with non-labored breathing. Right knee exam: Incision/Dressing: Dressing appears clean and dry. No drainage present. Mepilex intact. Right knee appears moderately swollen but supple with no obvious erythema, fluctuance or excessive warmth. No ecchymosis or erythematous streaking. Warmth around the wound is appropriate. Ice is being utilized as needed. CMS: Intact distally with 2+ Dorsalis pedis and Posterior Tibial pulses. 5/5 motor strength dorsal and plantar flexion. Confirmed sensation distally. Intact straight leg raise. Calf: Bilateral calves are supple, with no swelling, pain, tenderness, erythema, discoloration or coolness to the touch. Constitutional: Patient is alert and oriented x3. Patient is in no acute distress and converses without labored breathing. Patient is able to make decisions and demonstrates good insight. Patient is pleasant and cooperative. Affect is full range and appropriate for the circumstances. OTHER/DERM: Patient has several 1-2 cm superficial skin wounds/ulcerations over her anterior pierre, just distal to the Mepilex dressing. These wounds are non-erythematous, nontender without drainage. Const Vital Signs, click to edit/add: Vital Signs - 24 hr 08/19/23 08:43 08/19/23 08:50 08/19/23 11:15 Temperature 97.2 F L Pulse Rate 66 77 100 Pulse Rate [Left Pulse Oximeter] Respiratory Rate 20 20 20 Blood Pressure 125/83 134/79 122/68 Blood Pressure [Right Arm] Pulse Oximetry 94 94 95 Oxygen Delivery Method OxyMask OxyMask OxyMask Oxygen Flow Rate 5 5 6 Fraction of Inspired Oxygen 08/19/23 11:20 08/19/23 11:25 08/19/23 11:30 Temperature Pulse Rate 90 84 83 Pulse Rate [Left Pulse Oximeter] Respiratory Rate 18 20 18 Blood Pressure 118/71 112/74 116/73 Blood Pressure [Right Arm] Pulse Oximetry 94 95 96 Oxygen Delivery Method Oxygen Flow Rate Fraction of Inspired Oxygen 08/19/23 11:35 08/19/23 11:40 08/19/23 12:20 Temperature 97.0 F L 97.7 F Pulse Rate 82 78 70 Pulse Rate [Left Pulse Oximeter] Respiratory Rate 16 18 18 Blood Pressure 121/73 119/69 137/85 Blood Pressure [Right Arm] Pulse Oximetry 94 93 92 Oxygen Delivery Method Nasal Cannula Oxygen Flow Rate 2 Fraction of Inspired Oxygen 08/19/23 12:35 08/19/23 12:49 08/19/23 13:36 Temperature 97.6 F 97.7 F 97.7 F Pulse Rate 81 85 88 Pulse Rate [Left Pulse Oximeter] Respiratory Rate 18 17 16 Blood Pressure 131/77 140/67 H 143/75 H Blood Pressure [Right Arm] Pulse Oximetry 86 L 85 L 88 Oxygen Delivery Method Nasal Cannula Nasal Cannula Nasal Cannula Oxygen Flow Rate 2 2 1 Fraction of Inspired Oxygen 08/19/23 14:40 08/19/23 15:00 08/19/23 19:00 Temperature 97.6 F 97.2 F L Pulse Rate 83 Pulse Rate [Left Pulse Oximeter] 78 Respiratory Rate 16 16 Blood Pressure 133/70 Blood Pressure [Right Arm] 142/75 H Pulse Oximetry 84 L 85 L 91 Oxygen Delivery Method Nasal Cannula Nasal Cannula CPAP Oxygen Flow Rate 2 2 Fraction of Inspired Oxygen 08/19/23 19:51 08/19/23 23:00 08/19/23 23:00 Temperature Pulse Rate Pulse Rate [Left Pulse Oximeter] 79 Respiratory Rate 16 20 Blood Pressure Blood Pressure [Right Arm] Pulse Oximetry 86 L Oxygen Delivery Method CPAP CPAP Oxygen Flow Rate Fraction of Inspired Oxygen 28 08/19/23 23:11 08/20/23 02:12 08/20/23 07:24 Temperature 97.7 F 97.6 F Pulse Rate Pulse Rate [Left Pulse Oximeter] 79 81 Respiratory Rate 20 20 18 Blood Pressure Blood Pressure [Right Arm] 144/75 H 135/87 Pulse Oximetry 86 L 86 L 92 Oxygen Delivery Method CPAP CPAP Nasal Cannula Oxygen Flow Rate 2 2 Fraction of Inspired Oxygen 28 08/20/23 07:24 Temperature 98.8 F Pulse Rate Pulse Rate [Left Pulse Oximeter] 71 Respiratory Rate 18 Blood Pressure Blood Pressure [Right Arm] 124/65 Pulse Oximetry 92 Oxygen Delivery Method Nasal Cannula Oxygen Flow Rate 2 Fraction of Inspired Oxygen Assessment and Plan Assessment and plan (1) Status post total right knee replacement: Status: Acute Plan - Complete 23 hour perioperative antibiotics. - Respiratory Therapy consult later this morning. Patient has history of COPD and SOPHIA and is noncompliant with use of her CPAP. - PT/OT consults for education and assistance. - Weight bear as tolerated with a walker for assistance. - Prescribed analgesics as needed. Patient is content with current narcotic medications. Minimize narcotic pain medication use; wean off and discontinue as soon as possible. Again, I do not recommend a narcotic medication stronger than oxycodone given Skylar's pulmonary medical history. - DVT prophylaxis: resume Xarelto medication. Also frequent ambulation and ankle pumps when sedentary. - Social consult for discharge planning. - Anticipate patient will be discharged to home this afternoon if the patient remains medically stable, pain is controlled and is safe with ambulation. - Return to clinic in 1 week for a wound check with Essie Urrutia PA-C. Mepilex dressing will be removed at this appointment. Remove sooner if dressing becomes saturated. - Return to clinic in [address] Merino. - Phone Orthopedics with any questions or concerns. [phone] Total Time Spent Total time spent: 30
[2023-08-20] MEDS: RIVAROXABAN 10 MG TABLET 20 MG PO (08:30)
[2023-08-20] MEDS: DULOXETINE 30 MG CAPSULE DR PO (08:30)
[2023-08-20] MEDS: THIAMINE 100 MG TABLET 50 MG PO (08:31)
[2023-08-20] MEDS: SENNOSIDES 1 TAB TABLET 2 TAB PO (08:31)
[2023-08-20] MEDS: GABAPENTIN 300 MG CAPSULE 600 MG PO ×2 (08:33→13:44)
[2023-08-20] MEDS: FUROSEMIDE 10 MG/ML inj 20 MG IVP ×2 (09:45→13:44)
--- NOTE | 2023-08-20 10:20 | P.IMPN_ITS ---
Progress Note: A&P Assessment and plan (1) Status post total right knee replacement: Problem details: POD#1 s/p RTKA PT/OT consulted Will discharge home with support of a friend. Status: Acute (2) History of pulmonary embolism: Problem details: hx of bilateral PE chronic lifelong anticoagulation Status: Acute (3) Chronic anticoagulation: Problem details: Restart Xarelto for hx of bilateral PEs Status: Acute (4) Sleep apnea: Problem details: oxygen/CPAP - noncompliance Status: Acute (5) COPD (chronic obstructive pulmonary disease): Problem details: good respiratory hygiene ISP, aerobika RT consulted. Plan to discharge home on 2 L with activity. Outpatient follow- up with PCP Status: Acute (6) Depression with anxiety: Problem details: continue home meds: atarax, cymbalta, gabapentin Status: Acute (7) Fibromyalgia: Status: Acute Time Spent With Patient Total time spent: Total time spent caring for the patient today was 45 minutes. This includes time spent for the visit reviewing the chart, time spent during the visit, time spent after the visit and documentation and planning in coordination of care. Subjective Date Seen: 08/20/23 Interval history: Is seen postop day 1, status post right TKA. Has some stiffness in the leg otherwise pain has been previously adequately managed. Denies headache or dizziness. Tolerating orals without nausea vomiting. Continues to require oxygen supplementation postoperatively. Reported saturations during procedure in the OR were mid 80s. Overnight upper 80s. Patient has a CPAP at home but is not compliant with nightly use. Exam Narrative: Exam Narrative: PHYSICAL EXAM General: Pleasant, conversant, NAD Cardiovascular: RRR Pulmonary: No dyspnea on 2 L Neurological: Alert, answering questions appropriately, cranial nerves intact, no focal findings Extremities: Postoperative dressing in place, dry. Neurovascularly intact Skin: Warm, dry. Const: Vital Signs, click to edit/add: Vital Signs - 24 hr 08/19/23 11:15 08/19/23 11:20 08/19/23 11:25 Temperature 97.2 F L Pulse Rate 100 90 84 Pulse Rate [Left P ulse Oximeter] Respiratory Rate 20 18 20 Blood Pressure 122/68 118/71 112/74 Blood Pressure [Ri ght Arm] Pulse Oximetry 95 94 95 Oxygen Delivery Me thod OxyMask Oxygen Flow Rate 6 Fraction of Inspir ed Oxygen 08/19/23 11:30 08/19/23 11:35 08/19/23 11:40 Temperature 97.0 F L Pulse Rate 83 82 78 Pulse Rate [Left P ulse Oximeter] Respiratory Rate 18 16 18 Blood Pressure 116/73 121/73 119/69 Blood Pressure [Ri ght Arm] Pulse Oximetry 96 94 93 Oxygen Delivery Me thod Oxygen Flow Rate Fraction of Inspir ed Oxygen 08/19/23 12:20 08/19/23 12:35 08/19/23 12:49 Temperature 97.7 F 97.6 F 97.7 F Pulse Rate 70 81 85 Pulse Rate [Left P ulse Oximeter] Respiratory Rate 18 18 17 Blood Pressure 137/85 131/77 140/67 H Blood Pressure [Ri ght Arm] Pulse Oximetry 92 86 L 85 L Oxygen Delivery Me thod Nasal Cannula Nasal Cannula Nasal Cannula Oxygen Flow Rate 2 2 2 Fraction of Inspir ed Oxygen 08/19/23 13:36 08/19/23 14:40 08/19/23 15:00 Temperature 97.7 F 97.6 F Pulse Rate 88 83 Pulse Rate [Left P ulse Oximeter] Respiratory Rate 16 16 Blood Pressure 143/75 H 133/70 Blood Pressure [Ri ght Arm] Pulse Oximetry 88 84 L 85 L Oxygen Delivery Me thod Nasal Cannula Nasal Cannula Nasal Cannula Oxygen Flow Rate 1 2 2 Fraction of Inspir ed Oxygen 08/19/23 19:00 08/19/23 19:51 08/19/23 23:00 Temperature 97.2 F L Pulse Rate Pulse Rate [Left P ulse Oximeter] 78 79 Respiratory Rate 16 16 Blood Pressure Blood Pressure [Ri ght Arm] 142/75 H Pulse Oximetry 91 Oxygen Delivery Me thod CPAP CPAP Oxygen Flow Rate Fraction of Inspir ed Oxygen 08/19/23 23:00 08/19/23 23:11 08/20/23 02:12 Temperature 97.7 F 97.6 F Pulse Rate Pulse Rate [Left P ulse Oximeter] 79 81 Respiratory Rate 20 20 20 Blood Pressure Blood Pressure [Ri ght Arm] 144/75 H 135/87 Pulse Oximetry 86 L 86 L 86 L Oxygen Delivery Me thod CPAP CPAP CPAP Oxygen Flow Rate 2 Fraction of Inspir ed Oxygen 28 08/20/23 07:24 08/20/23 07:24 Temperature 98.8 F Pulse Rate Pulse Rate [Left P ulse Oximeter] 71 Respiratory Rate 18 18 Blood Pressure Blood Pressure [Ri ght Arm] 124/65 Pulse Oximetry 92 92 Oxygen Delivery Me thod Nasal Cannula Nasal Cannula Oxygen Flow Rate 2 2 Fraction of Inspir ed Oxygen Labs Labs: Laboratory Results - last 24 hr 08/19/23 08/19/23 08/19/23 19:30 19:32 20:24 WBC 13.82 H RBC 4.91 Hgb 14.9 Hct 47.9 MCV 98 MCH 30 MCHC 31 L RDW Coeff of Leydi 15.2 Plt Count 203 Neut % (Auto) 92.1 H Lymph % (Auto) 4.8 L [place] % (Auto) 2.8 Eos % (Auto) 0.0 Baso % (Auto) 0.1 Neut # (Auto) 12.70 H Lymph # (Auto) 0.70 L [place] # (Auto) 0.40 Eos # (Auto) 0.00 Baso # (Auto) 0.00 Abs Immat Gran (auto) 0.00 Imm/Tot Granulo (auto) 0.2 INR ABG pH 7.31 L ABG pCO2 55 H ABG pO2 76.2 L ABG HCO3 28 ABG Total CO2 25 ABG O2 Saturation 94 ABG Base Excess 0.6 VBG pH VBG pCO2 VBG pO2 VBG HCO3 Carboxyhemoglobin 3.1 Sodium 136 Potassium 5.1 Chloride 103 Carbon Dioxide 29 Anion Gap 4 L BUN 18 Creatinine 0.6 Estimated Creat Clear 40.81 Estimated GFR 96 Glucose 224 H Calcium 9.1 Troponin I 0.01 NT-Pro-B Natriuret Pep 115 Lab Acknowledgement Test Added 08/20/23 06:10 WBC 13.21 H RBC 4.49 Hgb 13.8 Hct 44.1 MCV 98 MCH 31 MCHC 31 L RDW Coeff of Leydi 14.9 Plt Count 214 Neut % (Auto) 81.6 H Lymph % (Auto) 8.6 L [place] % (Auto) 8.3 Eos % (Auto) 0.0 Baso % (Auto) 0.1 Neut # (Auto) 10.80 H Lymph # (Auto) 1.10 [place] # (Auto) 1.10 H Eos # (Auto) 0.00 Baso # (Auto) 0.00 Abs Immat Gran (auto) 0.20 Imm/Tot Granulo (auto) 1.4 INR 0.93 ABG pH ABG pCO2 ABG pO2 ABG HCO3 ABG Total CO2 ABG O2 Saturation ABG Base Excess VBG pH 7.324 VBG pCO2 54 H VBG pO2 59.2 H VBG HCO3 28 Carboxyhemoglobin Sodium 135 Potassium 5.1 Chloride Carbon Dioxide Anion Gap BUN 21 Creatinine 0.6 Estimated Creat Clear 40.81 Estimated GFR 96 Glucose Calcium Troponin I NT-Pro-B Natriuret Pep Lab Acknowledgement
[2023-08-20 10:58] VITALS: BP 115/65; PULSE 90; RESP 16; TEMP 36.6; O2SAT 88
[2023-08-20 13:05] VITALS: O2SAT 81; O2SAT 86; O2SAT 90
--- NOTE | 2023-08-20 14:07 | PC.NURSE ---
PT has been tolerating the chair well throughout the day today on 2L NC. PT sats sitting around 88%. PT pain has been ranging around 8/10. Pain has been managed with PRN pain medications, ice pack, and position change. PT is SA with GB and walker. Tolerates walking to the bathroom well. Tolerates regular diet well. PT cooperative and calm.
--- NOTE | 2023-08-20 16:10 | PC.NURSE ---
discharge. pt is pleasant. she has o2 on. she did not want o2 on at discharge. encouraged 02 uses. went over discharge packet with pt. pt had ride here so she said she would read all the information at home. she signed all copies of paper work. all belonging and paper work went with pt. she got 2 active ice to take home. took about to parking lot and found out that friend was at wrong hospital. NA stayed with pt and helped her in to car.
== END 2023-08-20 15:35 | disposition home or self-care (01) ==
LOC: OR 07:24 → MEDSURG 07:26
PROVIDERS: Family Medicine; PCP Nurse Practitioner Family; Visit Provider Orthopaedic Surgery
PROC: (CPT 27447; principal; 2023-08-19 09:00)
DX: M17.11 Unilateral primary osteoarthritis, right knee (principal); G89.18 Other acute postprocedural pain; I45.10 Unspecified right bundle-branch block; J44.9 Chronic obstructive pulmonary disease, unspecified; Z86.711 Personal history of pulmonary embolism; Z79.01 Long term (current) use of anticoagulants; F41.8 Other specified anxiety disorders; G47.30 Sleep apnea, unspecified; Z86.718 Personal history of other venous thrombosis and embolism; M79.7 Fibromyalgia; Z68.42 Body mass index [BMI] 45.0-49.9, adult; E66.01 Morbid (severe) obesity due to excess calories
CPT/HCPCS: 27447; 01402; 36415; 36600; 64447; 64454; 71045; 73560; 76942; 80048; 82565; 82803; 83880; 84132; 84295; 84484; 84520; 85025; 85027; 85610; 94664; 97110; 97116; 97161; 97165; 97530; 97535; 99100; A9270; C1776; J0690; J1100; J1170; J1940; J2250; J2371; J2405; J2704; J3010; J3490; J7120

== ENCOUNTER 2024-01-06 07:15 | Day surgery (SDC) | payer MEDICARE, BC, SELFPAY ==
[2024-01-06] VITALS (12 sets, daily range): BP systolic 75–137; BP diastolic 43–81; PULSE 70–78; RESP 16–18; TEMP 36.1–36.7; O2SAT 91–95; BMI 50.5
--- OUTSIDE RECORDS SUMMARY | 2024-01-06 07:18 | XMS_ITS | Clinical Summary ---
Author Organization [facility] Address [place], [place] [address] Care Team Providers Care Manager Of Medical Name Role Phone Lisa Eastman NP Primary Care Provider [facility] [place] Unavailable Allergies No known active allergies Medications Medication [...] BREATH OR WHEEZING 20.1 g 3 Active acetaminophen (TYLENOL EXTRA STRGTH) 500 mg tablet Take 1,000 mg by mouth two times daily. Max acetaminophen dose: 4000mg in 24 hrs. Active cholecalciferol (VITAMIN D3) 1,000 unit capsule Take 1,000 units by mouth once daily. Active vitamin B complex (B COMPLEX 1 ORAL) Take by mouth. Ac tive Xarelto 20 mg tabletIndications:P ulmonary emphysema, unspecified emphysema type (HC) TAKE 1 TABLET(20 MG) BY MOUTH EVERY DAY WITH THE EVENING MEAL 90 Tablet 3 4 Active DULoxetine (CYMBALTA) 60 mg Delayed-release capsuleIndications: Depression with anxiety Take 1 Capsule (60 mg) by mouth once daily. 90 Capsule 1 4 Active gabapentin (NEURONTIN) 300 mg capsuleIndications: Neuropathic pain Take 2 Capsules (600 mg) by mouth two times daily. 360 Capsule 3 4 Active hydrOXYzine pamoate (VISTARIL) 25 mg capsuleIndications: Anxiety,Grieving Take 1 capsule daily at supper as needed for sleep/anxiety 30 Capsule 5 4 Active rosuvastatin (CRESTOR) 20 mg tabletIndications:H yperlipidemia, unspecified hyperlipidemia type Take 1 Tablet (20 mg) by mouth at bedtime. 90 Tablet 3 4 Active rivaroxaban (Xarelto) 20 mg tabletIndications:P ulmonary emphysema, unspecified emphysema type (HC) Take 1 Tablet (20 mg) by mouth once daily with evening meal. 90 Tablet 3 4 Active hydrOXYzine pamoate (VISTARIL) 25 mg capsuleIndications: Anxiety,Grieving Take 1 capsule daily at supper as needed for sleep/anxiety 30 Capsule 5 3 12/24/19 24 Discontinue d(Reorder (E-cancel not sent)) Xarelto 20 mg tabletIndications:P ulmonary emphysema, unspecified emphysema type (HC) TAKE 1 TABLET(20 MG) BY MOUTH EVERY DAY WITH THE EVENING MEAL 90 Tablet 3 3 12/24/19 Discontinue d(Reorder (E-cancel not sent)) rosuvastatin (CRESTOR) 20 mg tabletIndications:H yperlipidemia, unspecified hyperlipidemia type TAKE 1 TABLET(20 MG) BY MOUTH AT BEDTIME 90 Tablet 3 4 12/24/19 24 Discontinue d(Reorder (E-cancel not sent)) gabapentin (NEURONTIN) 300 mg capsuleIndications: Neuropathic pain TAKE 2 CAPSULES BY MOUTH THREE TIMES DAILY 540 Capsule 4 12/24/19 Discontinue d(Reorder (E-cancel not sent)) torsemide (DEMADEX) 20 mg tabletIndications:P eripheral edema Take 1 Tablet (20 mg) by mouth once daily for 7 days. 7 Tablet 4 12/14/19 potassium chloride (KLOR-CON M10) 10 mEq extended-release tablet (part/cryst)Indicat ions:Peripheral edema Take 1 Tablet (10 mEq) by mouth once daily for 7 days. Take with water pill. 7 Tablet 4 12/14/19 DULoxetine (CYMBALTA) 60 mg Delayed-release capsuleIndications: Depression with anxiety Take 1 Capsule (60 mg) by mouth once daily. 90 Capsule 1 4 12/24/19 Discontinue d(Reorder (E-cancel not sent)) Active Problems Problem Noted Date Diagnosed Date S/P total knee replacement, right 09/10/2023 Asymmetrical sensorineural hearing loss 08/05/19 Tinnitus, bilateral [...] AHI-34 02/27/2014 History of stress test 02/02/2014 Overview (02/02/2014): Nuclear, normal COPD (chronic obstructive pulmonary disease) 08/2013 Sleep apnea 01/15/2014 Tobacco use 01/12/2014 Pulmonary embolism, bilateral 01/11/2014 Elevated troponin 01/11/2014 Cough 01/11/2014 Wheezing 01/11/2014 Fibromyalgia 04/25/2013 Pain medication agreement 04/25/2013 Overview (04/25/2013): Fibromyalgia, skin cancer Lung nodule 04/25/2013 Personal history of colonic polyps 11/07/2012 Depression with anxiety 02/23/2012 Squamous cell skin cancer, multiple sites 2011 Left shoulder advanced glenohumeral joint osteoa rthritis 01/22/2011 Right shoulder advanced glenohumeral osteoarthri tis 01/22/2011 Pulmonary embolism Overview (12/28/2016): Fall 2014and 03/2016 Polyp of colon Resolved Problems Problem Noted Date Diagnosed Date Resolved Date Pulmonary embolism 05/18/2016 7 Personal history of colonic polyps 11/07/2012 11/07/2012 Pneumonia, organism unspecified(486) 02/23/2012 01/11/2014 Left shoulder pain 01/22/2011 7 Right shoulder pain 01/22/2011 12/29/19 17 Encounters Date Type Department Care Team Description 12/24/2023 10:50 AM CDT Preop Visit [address] [address] Lisa Eastman NP Pre-Op Exam (01.06.2024) 12/24/2023 Travel 12/23/[address] [address] Lisa Eastman NP Refill Request (Xarelto) 12/15/[address] [address] Lisa Eastman NP Appointment Request (PRE OP) 12/07/2023 1:30 PM CDT Office Visit [address] [address] Lisa Eastman NP Edema (Bilateral legs) 12/07/2023 Travel 11/22/[address] [address] Lisa Eastman NP Refill Request (Gabapentin) 11/04/[address] [address] Lisa Eastman NP Form (Initial Eval. PT-Low Back) 10/27/[address] [phone] Lisa Eastman NP Referral (PHYSICAL THERAPY ) 10/26/2023 1:30 PM CDT Office Visit [address] [address] Trsesa Mitchell PA Consult (Decreased hearing of both ears /Asymmetrical sensorineural hearing loss /Tinnitus, bilateral ) 10/26/2023 Travel 10/07/2023 1:30 PM CDT Office Visit [address] [phone] Lisa Eastman NP Follow Up (Peripheral edema) 10/07/2023 Travel from Last 3 Months Immunizations Name Administration Dates Next Due Influenza RIV4 (Age 18+ Years) PRESERV FREE 07/2019 Influenza Virus, Unspecified 01/17/2003,01/18/20 Influenza, High-dose Inactivated 12/13/2017 Influenza, High-dose Quadriv [...] file 02/26/2023 Food Insecurity Answer Date Recorded Do you worry your food will run out before you are able to buy more? 1 02/26/2023 Transportation Needs Answer Date Record ed Lack of Transportation (Medical) 1 02/26/2023 Housing Stability Answer Date Recorded What is your housing situation today? 1 02/26/2023 Sex and Gender Information Value Date Recorded Sex Assigned at Not on file Gender Identity Not on file Sexual Orientation Not on file Obstetrics History Para Term AB IAB SAB Ectopic Multiple Livin g Live Births 2 2 Date Outcome GA Total Labor Labor/2nd/3rd Weight Sex Type Anes PTL Mayra A1 A5 Name Clin Last Filed Vital Signs Vital Sign Reading Time Taken Comments Blood Pressure 126/62 12/24/2023 10:47 AM CDT Pulse 76 12/24/2023 10:47 AM CDT Temperature 36.4 ??C (97.6 ??F) 08/31/2023 3:41 PM CD T Respiratory Rate 14 10/07/2023 1:33 PM CDT Oxygen Saturation 91% 12/24/2023 10:47 AM CDT Inhaled Oxygen Concentration - - Weight 125.2 kg (276 lb) 12/24/2023 10:47 AM CDT Height 158.8 cm (5' 2.5) 12/24/2023 10:47 AM CD T Body Mass Index 49.68 12/24/2023 10:47 AM CDT Plan of Treatment Upcoming Encounters Date Type Department Care Team (Late st Contact Info) Description 01/18/2024 8:10 AM ENGLISH DRAWER Office Visit [facility] [address] [place] [address] Lisa Eastman NP [address] [place], [place] [phone] Health Maintenance Due Date Last Done Comments COVID-19 vaccine series ( season) 2023 04/02/2021, 07/27/2020, 07/06/2020 Influenza for age 65+ 11/14/2023 12/19/2022 , 12/09/2021, 12/29/2020, Additional history exists Mammogram for age 45-75 12/22/2023 12/22/19, 12/25/2021, 12/18/2021, Additional history exists Depression screening for age 12+ 06/30/2024 07/01/2023, 06/18/2022, 06/15/2022, Additional history exists Medicare Wellness for age 65+ 07/01/2024 07/01/2023, 10/13/2021 BMI (ht and wt on same day) for age 18+ 12/23/2024 12/24/2023, 10/07/2023, 09/10/2023, Additional history exists Colonoscopy through age 75 [...] history exists Medical Devices Implanted Type Area Traction Power Engineer Device Identifier Shelf Expiration Date Model / Serial / Lot Trident Ii Tritanium Clusterhole Acetabular Shell Implanted:Qty: 1 on 09/27/2020 by Jose Suárez MD at [facility] Right: Hip [employer] 02/25/2025 702-04-54E / / [id number] 6.5mm Low Profile Hex Screw Implanted:Qty: 1 on 09/27/2020 by Jose Suárez MD at [facility] Right: Hip [employer] 05/07/2025 [id number] / / [id number] Trident X3 10 Degree Polyethylene Insert Implanted:Qty: 1 on 09/27/2020 by Jose Suárez MD at [facility] Right: Hip [employer] 06/04/2023 [id number] / / [id number] Accolade Ii 132 Degree Neck Angle Hip Stem Implanted:Qty: 1 on 09/27/2020 by Jose Suárez MD at [facility] Right: Hip [employer] 04/26/2024 [id number] / / [id number] [employer] Delta Ceramic V40 Femoral Head Implanted:Qty: 1 on 09/27/2020 by Jose Suárez MD at [facility] Right: Hip [employer] 05/15/2025 [id number] / / [id number] Procedures Procedure Name Priority Date/Time Associated Diagnosis Comments BASIC METABOLIC PANEL Routine 12/24/2023 11:46 AM CDT Pre-op evaluation CBC WITH AUTO DIFFERENTIAL Routine 12/24/2023 11:46 AM CDT Pre-op evaluation COLONOSCOPY 02/24/2023 7:20 AM ENGLISH DRAWER XR MAMMO NAFISA BILAT SCREEN Routine 12/21/2022 [...] to Health Maintenance Results * (ABNORMAL) CBC AND DIFFERENTIAL (12/24/2023 11:46 AM CDT) WHITE BLOOD CELL COUNT 9.5 3.8 - 10.8 Thousand/u L [facility] RED BLOOD CELL COUNT 4.89 3.80 - 5.10 Million/uL [facility] HEMOGLOBIN 15.3 11.7 - 15.5 g/dL [facility] HEMATOCRIT 47.0(H) 35.0 - 45.0 % [facility] MCV 96.1 80.0 - 100.0 fL [facility] MCH 31.3 27.0 - 33.0 pg [facility] MCHC 32.6 32.0 - 36.0 g/dL [facility] Comment: For adults, a slight decrease in the calculated MCHC value (in the range of 30 to 32 g/dL) is most likely not clinically significant; however, it should be interpreted with caution in correlation with other red cell parameters and the patient's clinical condition. RDW 14.1 11.0 - 15.0 % [facility] PLATELET COUNT 211 140 - 400 Thousand/u L [facility] MPV 11.5 7.5 - 12.5 fL [facility] ABSOLUTE NEUTROPHILS 7,011 1,500 - 7,800 cells/uL [facility] ABSOLUTE LYMPHOCYTES 1,615 850 - 3,900 cells/uL [facility] ABSOLUTE MONOCYTES 637 200 - 950 cells/uL [facility] ABSOLUTE EOSINOPHILS 200 15 - 500 cells/uL [facility] ABSOLUTE BASOPHILS 38 0 - 200 cells/uL [facility] NEUTROPHILS 73.8 % [facility] LYMPHOCYTES 17.0 % [facility] MONOCYTES 6.7 % [facility] EOSINOPHILS 2.1 % [facility] BASOPHILS 0.4 % [facility] Blood BLOOD SPECIMEN / Unknown 12/24/2023 11:46 AM CDT 12/24/2023 11:48 AM CDT Narrative [facility] - 12/25/2023 3:15 AM CDT FASTING:YES FASTING: YES Lisa Eastman NP HEMATOLOGY [facility] [address] [place] [address], [place] [address] [facility] [place] [address] * (ABNORMAL) BASIC METABOLIC PANEL (12/24/2023 11:46 AM CDT) [facility] GLUCOSE 105(H) 65 - 99 mg/dL [facility] Comment: ? Fasting reference interval For someone without known diabetes, a glucose value between 100 and 125 mg/dL is consistent with prediabetes and should be confirmed with a follow-up test. UREA NITROGEN (BUN) 19 7 - 25 mg/dL [facility] CREATININE 1.14(H) 0.60 - 1.00 mg/dL [facility] EGFR 51(L) > OR = 60 mL/min/1.7 3m2 [facility] BUN/CREATININE RATIO 17 6 - 22 (calc) [facility] SODIUM 144 135 - 146 mmol/L [facility] POTASSIUM 4.5 3.5 - 5.3 mmol/L [facility] CHLORIDE 107 98 - 110 mmol/L [facility] CARBON DIOXIDE 25 20 - 32 mmol/L [facility] ELECTROLYTE BALANCE 12 7 - 17 mmol/L (calc) [facility] CALCIUM 9.1 8.6 - 10.4 mg/dL [facility] Blood BLOOD SPECIMEN / Unknown 12/24/2023 11:46 AM CDT 12/24/2023 11:48 AM CDT Narrative [facility] - 12/25/2023 5:02 AM CDT FASTING:YES FASTING: YES Lisa Eastman NP CHEMISTRY [facility] [address] [facility] [place] [address], [place] [address] [place] [address] * COLONOSCOPY (02/24/2023 7:20 AM ENGLISH DRAWER) 02/24/2023 7:20 AM ENGLISH DRAWER Narrative Transcriptions Juan Doe MD - 02/24/2023 8:18 AM CST Patient Name: Skylar Flynn Procedure Date: 02/24/2023 Gender: Female Date of : 1950 Admit Type: Ambulatory Procedure: Colonoscopy Proceduralist: Juan Doe MD [facility] MD: Juan Doe MD Indications/Pre-Op Diagnosis: High risk colon cancer surveillance:Personal history of colonic polyps Medications: Propofol per Anesthesia Procedure Description: The patient had risks, benefits and alternatives explained to andgave informed consent. The patient had a stable cardiopulmonary status and judged an adequate candidate for conscious sedation. The endoscope [id number] was passed through the anus with the [...] care provider. XR MAMMO NAFISA BILAT SCREEN [[id number]] CLINICAL HISTORY: ??This is an asymptomatic 72 y.o. patient. INDICATION FOR EXAM: Mammogram Screening. TECHNIQUE: CC & MLO views were obtained. ??This study was evaluated with the assistance of Computer-Aided Detection. Breast Tomosynthesis was used in interpretation. COMPARISON FILM: Yes 12/18/21 [facility] 04/06/19 [facility] FINDINGS: ??The breasts are almost entirely fatty. There are no dominant masses, suspicious micro calcifications or areas of architectural distortion. Lisa Eastman NP MAMMO * (ABNORMAL) LIPID PANEL W REFLEX MEASURED LDL (10/13/2021 2:00 PM CDT) CHOLESTEROL,TOTAL 144 100 - 199 mg/dL 10/13/2021 2:53 PM CDT [facility] TRIGLYCERIDES 276(H) <150 mg/dL 10/13/2021 2:53 PM CDT [facility] HDL CHOLESTEROL 29(L) >40 mg/dL 2:53 PM CDT [facility] NON-HDL CHOLESTEROL 115 <145 mg/dl 10/13/2021 2:53 PM CDT [facility] CHOL/HDL RATIO 4.97(H) <4.50 10/13/2021 2:53 PM CDT [facility] LDL CHOLESTEROL 60 <=130 mg/dL 10/13/2021 2:53 PM CDT [facility] VLDL CHOLESTEROL 55(H) <=30 mg/dL 10/13/2021 2:53 PM CDT [facility] PROVIDER ORDERED STATUS RANDOM 10/13/2021 2:53 PM CDT [facility] Blood BLOOD SPECIMEN / Unknown Venipuncture / Unknown 10/13/2021 2:00 PM CDT 10/13/2021 2:04 PM CDT Lisa Eastman NP CHEMISTRY [facility] [address] [place] [address] * ANTI HCV (10/13/2021 2:00 PM CDT) HEPATITIS C ANTIBODY Non-React adilene Non-React adilene 10/14/2021 9:59 PM CDT [facility] Comment:Antibodies to HCV no t detected; does not exclude the possibility of exposure to HCV. Blood BLOOD SPECIMEN / Unknown Venipuncture / Unknown 10/13/2021 2:00 PM CDT 10/13/2021 2:04 PM CDT Lisa Eastman NP SEND OUTS [facility] [address] [place] [address], * (ABNORMAL) XR DXA BONE DENSITY 2 SITES [01307.1] (08/02/2018 2:51 PM CDT) Anatomical Region Laterality [...] Comments Code Status Discussion: Discussed Care Teams Manager Of Medical Relationship Specialty Start Date End Date Lisa Eastman NP [address] [place] [address] ROXY HUANG [address] PCP - General Family Practice 02/18/12 [facility] [address] [place] [address] 03/01/23
[2024-01-06] MEDS: SODIUM CHLORIDE 0.9 % (FLUSH) 10 ML SYRINGE IVF (08:08)
--- NOTE | 2024-01-06 08:50 | W.ANESCHARGE ---
Anesthesia Charges Start Date/Time Anesthesia Start Date: 01/06/24 Anesthesia Start Time: 08:55 Stop Date/Time Anesthesia Stop Date: 01/06/24 Anesthesia Stop Time: 10:16 Summary Extremes of Age - Over 70 or under 1: MDA
[2024-01-06] MEDS: CEFAZOLIN 2 GM INJ IVP (09:07)
[2024-01-06] MEDS: BUPIVACAINE 0.25% 30 ML INJECTION (10:00)
--- NOTE | 2024-01-06 10:03 | PM.ORPRC ---
Procedure Note Date of procedure: 01/06/24 Procedure: PREOPERATIVE DIAGNOSIS: Right total knee arthroplasty patellar clunk syndrome POSTOPERATIVE DIAGNOSIS: Right total knee arthroplasty patellar clunk syndrome NAME OF OPERATION: Right total knee arthroplasty arthroscopic debridement SURGEON: Brandon Merino MD INSPECTOR OF DREDGING: Nicolasa Gupta PA-C ANESTHESIA: Spinal ESTIMATED BLOOD LOSS: 5 mL COMPLICATIONS: None SPECIMENS: None DRAINS: None PREOPERATIVE ANTIBIOTICS: Ancef 3 g INDICATIONS: The patient is a 73-year-old female with a history of right total knee arthroplasty patellar clunk syndrome. Operative intervention was recommended. The risks, benefits and expected outcomes were discussed in detail. These included but were not limited to: Infection, bleeding, injury to blood vessel or nerve, venous thromboembolism. All questions were answered to their satisfaction. PROCEDURE: Spinal anesthesia was administered. The patient was placed supine on the operating room table. The right lower extremity was prepped and draped in the usual sterile fashion. The limb was exsanguinated with the Rufus bandage. The pneumatic tourniquet was inflated to 300 mmHg. A standard anterolateral portal was established. The arthroscope was introduced. The working portal was established anteromedially. Diagnostic arthroscopy was performed with findings as follows: The patellar component is intact with circumferential scarring surrounding it. The femoral component is normal, the tibial polyethylene is normal. The scarring posterior to ther patellar tendon was debrided with the radiofrequency probe and shaver. A superolateral portal was placed. Then we aggressively debrided around the patellar component and posterior to the quads tendon with the shaver and radiofrequency probe. Arthroscopic instruments were removed, the portal sites were closed with a 3-0 nylon. Portals were injected with 0.5% Marcaine without epinephrine. A dry dressing was applied, the tourniquet was released. Sponge and needle counts were correct x 2. The patient tolerated the procedure well. There were no apparent complications. They were carefully transferred to the hospital bed and taken to the postanesthesia care unit in satisfactory condition. PLAN: The patient will be discharged to home. They may weightbear as tolerates. Range of motion will be unrestricted. They will follow up in the office in 2 weeks for a wound check and suture removal.
--- NOTE | 2024-01-06 10:22 | W.ANESCHARGE ---
Anesthesia Charges Start Date/Time Anesthesia Start Date: 01/06/24 Anesthesia Start Time: 08:55 Stop Date/Time Anesthesia Stop Date: 01/06/24 Anesthesia Stop Time: 10:16
== END 2024-01-06 11:53 | disposition home or self-care (01) ==
LOC: OR 07:16
PROVIDERS: PCP Nurse Practitioner Family; Visit Provider Orthopaedic Surgery
PROC: (CPT 29870; principal; 2024-01-06 08:30)
DX: M25.861 Other specified joint disorders, right knee (principal); Z96.651 Presence of right artificial knee joint
CPT/HCPCS: 29877; 01400; 99100; J0665; J0690; J1100; J2250; J2371; J2405; J2704; J3010

== ENCOUNTER 2024-09-28 12:33 | Outpatient (CLI) | payer MEDICARE, BC, SELFPAY ==
--- NOTE | 2024-09-28 13:00 | CRLHL7_ITS ---
For Patients: As a result of the Century Cures Act, medical imaging exams and procedure reports are released immediately into your electronic medical record. You may view this report before your referring provider. If you have questions, please contact your health care provider. INDICATION: Spinal stenosis. TECHNIQUE: Multisequence multiplanar MRI of the lumbar spine without the use of intravenous contrast. COMPARISON: Correlated with lumbar spine radiographs dated 09/21/2024. FINDINGS: Grade 1 3 mm anterolisthesis of L5 on S1. Chronic depression of the L2 superior endplate. No T1 hypointense infiltrative lesion. Mild multilevel disc desiccation and height loss. The conus medullaris terminates normally at the L1 level. A circumscribed left interpolar renal parenchymal hyperintensity is not adequately characterized but most typical for a cyst. T12-L1: Symmetric disc bulge. No significant spinal canal or neural foraminal stenosis. L1-L2: Symmetric disc bulge. Mild facet joint arthrosis. Mild spinal canal stenosis. No significant neural foraminal narrowing. L2-L3: Symmetric disc bulge. Moderate facet joint arthrosis. Mild spinal canal stenosis and severe left neural foraminal narrowing. No significant right neural foraminal narrowing. L3-L4: Symmetric disc bulge. Moderate facet joint arthrosis. Mild spinal canal stenosis. No significant neural foraminal narrowing. L4-L5: Advanced facet joint hypertrophy and ankylosis. Symmetric disc bulge/uncovering. Mild spinal canal stenosis. No significant neural foraminal narrowing. L5-S1: Advanced facet joint hypertrophy. Shallow symmetric disc bulge/uncovering. Mild spinal canal stenosis and left neural foraminal narrowing. No significant right neural foraminal narrowing. IMPRESSION: 1. Chronic depression of the L2 superior endplate. 2. Grade 1 anterolisthesis of L5 on S1. 3. At L2-L3, mild spinal canal stenosis and severe left neural foraminal narrowing. 4. Mild spinal canal stenosis at the remaining levels in the lumbar spine without high-grade neural foraminal narrowing. Dictated by Macario Brown MD @ 09/29/2024 1:16:55 PM (Electronically Signed)
== END 2024-09-28 12:34 | disposition home or self-care (01) ==
LOC: MRI 12:34
PROVIDERS: PCP Nurse Practitioner Family; Visit Provider Family Medicine
DX: M48.061 Spinal stenosis, lumbar region without neurogenic claudication (principal)
CPT/HCPCS: 72148

== ENCOUNTER 2024-12-05 08:33 | Outpatient (CLI) | payer MEDICARE, BC, SELFPAY | END 2024-12-05 08:34 | disposition home or self-care (01) | LOC: INJ CL 08:35 | PROVIDERS: PCP Nurse Practitioner Family; Visit Provider Family Medicine | DX: M54.16 Radiculopathy, lumbar region (principal); M51.26 Other intervertebral disc displacement, lumbar region; M51.360 Other intervertebral disc degeneration, lumbar region with discogenic back pain only | CPT/HCPCS: 64483; J1100; Q9966 ==

== ENCOUNTER 2025-02-13 09:05 | Outpatient (CLI) | payer MEDICARE, BC, SELFPAY | END 2025-02-13 09:06 | disposition home or self-care (01) | LOC: INJ CL 09:05 | PROVIDERS: PCP Nurse Practitioner Family; Visit Provider Family Medicine | DX: M53.3 Sacrococcygeal disorders, not elsewhere classified (principal) | CPT/HCPCS: 27096; Q9966 ==